=== PATIENT | male | born 1990 | race African-American/Black ===

== ENCOUNTER 2020-12-06 17:36 | Outpatient (REF) | payer MEDICAID, SELFPAY | END 2020-12-06 17:37 | disposition home or self-care (01) | LOC: HO.LAB 17:36 | PROVIDERS: Visit Provider Internal Medicine | DX: Z20.828 Contact with and (suspected) exposure to other viral communicable diseases (principal) | CPT/HCPCS: 36415; C9803; U0003 ==

== ENCOUNTER 2022-02-15 07:59 | Outpatient (REF) | payer MEDICAID, SELFPAY ==
--- NOTE | ~2022-02-15 | MR_ITS ---
EXAMINATION: MR SHOULDER WITHOUT CONTRAST, RIGHT CLINICAL INFORMATION: Right shoulder pain. COMPARISON: None TECHNIQUE: MRI of the shoulder without contrast was performed on a high-field scanner. FINDINGS: ROTATOR CUFF: Near complete tear of the supraspinatus tendon with some posteriormost fibers remaining intact. The tear measures approximately 1.7 cm in AP dimension with a 0.6 cm gap. Minimal undersurface partial tear at the infraspinatus tendon insertion with an associated small cyst at the myotendinous junction. Subscapularis insertional tendinopathy with ill-defined longitudinal interstitial/undersurface partial tear. No muscle atrophy or fatty infiltration. BICEPS: The biceps tendon is either markedly attenuated or completely torn and retracted. CORACOACROMIAL ARCH: The undersurface of the acromion is curved with an os acromiale with minimal degenerative change. The acromioclavicular joint is normal. LABRUM/CAPSULE: Evidence of an undersurface tear of the inferior labrum at the 6 o'clock position with an associated lobulated 1.1 cm paralabral cyst. GLENOHUMERAL JOINT/MARROW: Degenerative marrow changes and osteophytes along the greater tuberosity and superolateral humeral head. MR/MR shoulder RT wo con IMPRESSION: Complete or near-complete supraspinatus tendon tear as described. Evidence of a small undersurface partial tear of the distal infraspinatus tendon. Os acromiale with minimal degenerative change. Subscapularis tendinopathy with ill-defined longitudinal interstitial/undersurface partial tearing. Inferior labral tear with paralabral cyst. The biceps tendon is either markedly attenuated or torn and retracted.
--- NOTE | ~2022-02-15 | XR_ITS ---
EXAMINATION: PRE-MRI SCREENING ORBITS.. 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 COMPARISON: None TECHNIQUE: 3 views FINDINGS: 3 views of the orbits reveal no radiopaque metallic foreign body in the orbits. Visualized paranasal sinuses and mastoid air cells are well aerated. XR/XR pre mri screening IMPRESSION: No radiopaque metallic foreign body seen in the orbits.
== END 2022-02-15 08:00 | disposition home or self-care (01) ==
LOC: HO.MRI 07:59
PROVIDERS: PCP Internal Medicine; Visit Provider Internal Medicine
DX: S49.91XA Unspecified injury of right shoulder and upper arm, initial encounter (principal); Z87.828 Personal history of other (healed) physical injury and trauma
CPT/HCPCS: 73221

== ENCOUNTER 2022-03-15 11:33 | Outpatient (REF) | payer MEDICAID, SELFPAY ==
[2022-03-15 14:37] LABS: CT PCR NOT DETECTED (Not Detect.); NG PCR NOT DETECTED (Not Detect.)
== END 2022-03-15 11:34 | disposition home or self-care (01) ==
LOC: HO.LAB 11:33
PROVIDERS: PCP Internal Medicine; Visit Provider Internal Medicine
DX: Z11.3 Encounter for screening for infections with a predominantly sexual mode of transmission (principal); Z20.2 Contact with and (suspected) exposure to infections with a predominantly sexual mode of transmission
CPT/HCPCS: 87491; 87591

== ENCOUNTER 2023-03-08 20:48 | Emergency (ER) | payer MEDICAID, SELFPAY ==
[2023-03-08 21:04] VITALS: BP 128/80; PULSE 87; RESP 18; TEMP 36.4; O2SAT 97; BMI 31.0
--- NOTE | 2023-03-08 22:35 | ED_ITS ---
HPI - Animal Bite General Chief Complaint: Wound/Laceration Stated Complaint: animal bite Time Seen by Provider: 03/08/23 22:23 Source: patient Mode of arrival: ambulatory Limitations: no limitations History of Present Illness HPI narrative: Patient comes to the emergency room complaining of a dog bite. Patient states that he has a small dog who constantly tries to fight big dogs. This time, the small dog picked up a fight with a serbian Campos. Patient states that he was trying to pick up attendant his dog, the other person was trying to hold his [place] Campos back. However, during the fight, patient accidentally bitten by the Nigerian Campos. Patient states that he does not know the sales engagement manager of the Nigerian Campos and does not know anything about the other dog. Patient states he is up-to-date with his tetanus shot, received it 1 year ago. Patient complaining of a small bite to the right forearm Related Data Previous Rx's Medication Instructions Recorded doxycycline hyclate 100 mg capsule 100 mg PO BID 7 days #14 caps 03/08/23 metronidazole 500 mg tablet 500 mg PO TID 7 days #21 tabs 03/08/23 Allergies Allergy/AdvReac Type Severity Reaction Status Date / Time peanut [PEANUTS] Allergy Severe ANAPHYLAXIS Verified 03/08/23 21:07 Penicillins [PENICILLINS] Allergy Unknown HIVES Verified 03/08/23 21:07 Review of Systems Review of Systems: Constitutional : No Weight loss, No Fever, No Chills, No Night Sweats, No Fatigue, No Malaise ENT/Mouth : No Hearing loss, No Ear Pain, No Nasal Congestion, No Sinus Pain, No Hoarseness, No sore throat, No Rhinorrhea, No Swallowing Difficulty Eyes: No Eye Pain, No Swelling, No Redness, No Foreign Body, No Discharge, No Vision Changes Cardiovascular : No Chest Pain, No SOB, No Dyspnea on Exertion, No Orthopnea, No Edema, No Palpitations Respiratory : No Cough, No Sputum, No Wheezing, No Smoke Exposure, No Dyspnea Gastrointestinal : No Nausea, No Vomiting, No Diarrhea, No Constipation, No abdominal Pain, No Hematochezia, No Melena Genitourinary : no irregular bleeding, No Dysuria, No Urinary Frequency, No Hematuria, No Urinary Incontinence, No Urgency, No Flank Pain, No Urinary Flow Changes, No Hesitancy Musculoskeletal : No joint pain, No Myalgias, No Joint Swelling Skin : Dog bite to the right forearm Neuro : No Weakness, No Numbness, No Paresthesias, No Loss of Consciousness, No Dizziness, No Headache Psych : No Anxiety/Panic, No Depression, No SI/HI/AH/VH, No Social Issues, Heme/Lymph: No Bruising, No Bleeding,No Lymphadenopathy Endocrine : No Polyuria, No Polydipsia, No Temperature Intolerance PMFSH Social History Social History Advance Directives: No Advance Directives Information Provided: No Physical Exam ED Vital Signs: Vital Signs - 24 hr 03/08/23 21:04 Temperature 97.6 F Pulse Rate 87 Respiratory Rate 18 Blood Pressure 128/80 Pulse Oximetry 97 Oxygen Delivery Method Room Air BMI result Body Mass Index 31.0 Const Other: Appearance: Alert. Oriented X3. No acute distress. Eyes: Pupils equal, round and reactive to light. ENT: Pharynx normal. Neck: Normal inspection. Neck supple. No lymph nodes noted. No crepitus CVS: Normal heart rate and rhythm. Pulses normal. Normal S1 and S2 Respiratory: No respiratory distress. Breath sounds normal. No Wheezing. No rales Abdomen: Soft and nontender. No rigidity. No distention. Skin: Skin warm and dry. Three small puncture wounds, fairly superficial, bleeding controlled, Extremities: No lower extremity edema. No Lacerations. No Rash Neuro: Oriented X 3. No motor deficit. No sensory deficit. Moving all extremities. No slurred speech. CN 2 through 12 grossly intact Psych: calm, cooperative, normal affect Course Course Course Narrative: -patient's wounds were thoroughly irrigated -patient is up-to-date with tetanus shot -since we do not know anything about the dog, I discussed with the patient that I recommend the rabies vaccine series. Patient is agreeable. -patient is allergic to penicillin, patient was given p.o. metronidazole and doxycycline in the emergency room. Patient will continue treatment at home Discharge Plan Discharge Clinical Impression: Dog bite Patient Disposition: Home, Self-Care Instructions: Animal Bite (ED) Additional Instructions: Please follow-up with your primary care physician tomorrow. Also, please make sure you go to your appointment for your rabies immunizations. If you have any worsening or new symptoms, please return to the emergency room or call 911 Prescriptions: New metronidazole 500 mg tablet 500 mg PO TID 7 Days Qty: 21 0RF doxycycline hyclate 100 mg capsule 100 mg PO BID 7 Days Qty: 14 0RF
[2023-03-08] MEDS: Doxycycline Monohydrate 100 MG CAPSULE PO (23:21)
[2023-03-08] MEDS: metroNIDAZOLE 500 MG TABLET PO (23:21)
[2023-03-08] MEDS: Rabies Immune Globulin/PF 900 UNIT/3 ML VIAL 1905.08 UNIT IM (23:41)
== END 2023-03-09 00:04 | disposition home or self-care (01) ==
PROVIDERS: Emergency Provider Emergency Medicine; PCP Internal Medicine
DX: S51.851A Open bite of right forearm, initial encounter (principal); W54.0XXA Bitten by dog, initial encounter; Y93.9 Activity, unspecified; Y92.9 Unspecified place or not applicable; Y99.9 Unspecified external cause status; Z29.14 Encounter for prophylactic rabies immune globulin; Z20.3 Contact with and (suspected) exposure to rabies; Z23 Encounter for immunization
CPT/HCPCS: 90375; 90471; 90675; 96372; 99283; 99284

== ENCOUNTER 2023-03-11 08:45 | Outpatient (REF) | payer MEDICAID, SELFPAY | END 2023-03-11 08:46 | disposition home or self-care (01) | LOC: HO.MDS 08:45 | PROVIDERS: PCP Internal Medicine; Visit Provider Emergency Medicine | DX: Z20.3 Contact with and (suspected) exposure to rabies (principal); T14.8XXD Other injury of unspecified body region, subsequent encounter; W54.0XXD Bitten by dog, subsequent encounter | CPT/HCPCS: 90471; 90675 ==

== ENCOUNTER 2023-03-15 07:42 | Outpatient (REF) | payer MEDICAID, SELFPAY | END 2023-03-15 07:43 | disposition home or self-care (01) | LOC: HO.MDS 07:42 | PROVIDERS: Visit Provider Emergency Medicine | DX: S40.871D Other superficial bite of right upper arm, subsequent encounter (principal); W54.0XXD Bitten by dog, subsequent encounter; Y93.9 Activity, unspecified; Y92.9 Unspecified place or not applicable; Y99.9 Unspecified external cause status; Z20.3 Contact with and (suspected) exposure to rabies | CPT/HCPCS: 90471; 90675 ==

== ENCOUNTER 2023-03-22 07:35 | Outpatient (REF) | payer MEDICAID, SELFPAY | END 2023-03-22 07:36 | disposition home or self-care (01) | LOC: HO.MDS 07:35 | PROVIDERS: Visit Provider Emergency Medicine | DX: T14.8XXA Other injury of unspecified body region, initial encounter (principal); W54.0XXA Bitten by dog, initial encounter; Y92.9 Unspecified place or not applicable; Y99.9 Unspecified external cause status; Z20.3 Contact with and (suspected) exposure to rabies | CPT/HCPCS: 90471; 90675 ==

== ENCOUNTER 2023-11-10 10:16 | Emergency (ER) | payer MEDICAID, SELFPAY ==
--- NOTE | ~2023-11-10 | CT_ITS ---
EXAMINATION: CT ABDOMEN AND PELVIS WITH CONTRAST CLINICAL INFORMATION: Abdominal pain. COMPARISON: CT scan of the abdomen and pelvis dated 09/14/2017. TECHNIQUE: Multidetector CT volumetric acquisition of the abdomen and pelvis was performed after the administration of 85 mL of intravenous Omnipaque 350. The data set was reformatted in the sagittal and coronal planes and reviewed on an independent workstation. This CT examination was performed using dose optimization techniques as appropriate, variously including the following: *Automated exposure control *Adjustment of mA and/or kV according to patient size (this includes techniques or standardized protocols for targeted exams where dose is matched to indication/reason for exam; i.e. extremities or head) *Use of iterative reconstruction technique DLP: 510.76 mGy-cm. FINDINGS: LOWER CHEST: Included lung bases unremarkable. Focal fluid distention of the included portions of the distal esophagus noted, perhaps related to gastroesophageal reflux. LIVER, GALLBLADDER, BILIARY TREE: Liver normal size and attenuation. The hepatic dome is not fully included in the [id number] of the exam. No focal cystic or solid mass or intra-or extrahepatic ductal dilatation. Portal veins patent. A few calcified gallstones are seen within the gallbladder neck region. The gallbladder is otherwise unremarkable with no evidence of wall thickening or pericholecystic fluid. PANCREAS: Normal. No ductal dilatation, mass, or surrounding stranding. SPLEEN: Normal size and appearance. Splenic vein patent. ADRENAL GLANDS AND KIDNEYS: Right adrenal gland normal. Fullness of the left adrenal gland is seen with a subtle 2.5 x 1.3 nodular enlargement of the inferior lateral limb, unchanged dating back to 09/14/2017 and consistent with a benign finding, such as nodular adrenal hypertrophy versus a benign adrenal adenoma. Lobulated mid right renal thin-walled nonenhancing cyst is again seen, unchanged from prior exam. No specific imaging follow-up for benign cysts is recommended. Kidneys bilaterally symmetric in size and function. No suspicious focal renal mass, hydronephrosis, nephrolithiasis or perinephric stranding. URETERS AND BLADDER: Ureters decompressed and within normal limits. Bladder partially distended and within normal limits. PELVIC ORGANS: Unremarkable. GASTROINTESTINAL TRACT: There is mild fluid distention of small bowel loops in the right side of the abdomen extending into the pelvis with associated minimal hyperemia of the mesentery and a few scattered air-fluid levels. Findings raise the suspicion of subtle enteritis. The terminal ileum is decompressed and unremarkable. A few scattered colonic diverticula are seen with no evidence of acute diverticulitis. There is prominent submucosal fat deposition noted in the transverse colon, perhaps sequelae of previous colitis versus related to increased body habitus. Appendix is not seen, but no focal inflammatory process is seen at the cecal base to suspect acute appendicitis.. LYMPHOVASCULAR STRUCTURES: Abdominal aorta normal in caliber. No periaortic collections. No abdominal or pelvic adenopathy or free fluid collection. BONES: Small sclerotic density is seen in the left iliac bone (series 4, image 463), new from 09/14/2017, of uncertain etiology or significance. Finding may represent a small cyst with peripheral sclerotic rim. CT/CT abdomen pelvis w IV con IMPRESSION: * Mild fluid distention of small bowel loops in the right side of the abdomen and pelvis, nonspecific, but raising the suspicion of an enteritis. Close clinical correlation is requested. * Cholelithiasis with no evidence of acute cholecystitis or biliary obstruction. * Stable nodular enlargement of the left adrenal gland, consistent with a benign finding, such as nodular adrenal hypertrophy versus a benign adrenal adenoma. * Benign-appearing right renal cyst, for which no imaging follow-up is recommended. * Small sclerotic density in the left iliac bone, new from 09/14/2017, of uncertain etiology or significance. Finding may represent a small cyst with peripheral sclerotic rim. If the patient is symptomatic in this region, follow-up evaluation with nonemergent bone scan could be performed.
[2023-11-10 10:22] VITALS: PULSE 65; RESP 16; TEMP 36.4; O2SAT 98; BMI 33.5
--- NOTE | 2023-11-10 10:29 | ED_ITS ---
HPI - General Adult General Chief complaint: Abdominal Pain Stated complaint: abd pain Time Seen by Provider: 11/10/23 10:29 Source: patient Mode of arrival: wheelchair Limitations: no limitations History of Present Illness HPI narrative: Patient is a 33 year old assigned male at with no reported medical history presenting to the emergency department today with abdominal pain. Patient states that he was lying down when he had sudden abdominal pain. Patient denies any dizziness, lightheadedness, nausea, vomiting, fever, chills, blurry vision, double vision, loss of vision, chest pain, difficulty breathing, shortness of breath, back pain, night sweats, pain with urination, increased urinary frequency, increased urinary urgency, blood in his urine or stool, syncope or a near syncopal episode, recent trauma or falls, bowel incontinence, bladder incontinence, bowel retention, bladder retention, or any other complaints at this time. Onset (ago): minute(s) Location: abdomen Radiation: non-radiation Severity: moderate Severity scale (1-10): 5 Relieving factors: none Exacerbating factors: none Associated symptoms: denies other symptoms Treatments prior to arrival: none Related Data Previous Rx's Medication Instructions Recorded doxycycline hyclate 100 mg capsule 100 mg PO BID 7 days #14 caps 03/08/23 metronidazole 500 mg tablet 500 mg PO TID 7 days #21 tabs 03/08/23 ondansetron 4 mg disintegrating 4 mg PO Q8H 3 days #9 tabs 11/10/23 tablet Allergies Allergy/AdvReac Type Severity Reaction Status Date / Time peanut [PEANUTS] Allergy Severe ANAPHYLAXIS Verified 11/10/23 10:25 Penicillins [PENICILLINS] Allergy Unknown HIVES Verified 11/10/23 10:25 Review of Systems 2 Constitutional: Constitutional: Reports no additional constitutional complaints, Denies chills, Denies fever(s) and Denies night sweats Eyes: Eyes: Reports no additional eye complaints, Denies blurry vision, Denies change in vision, Denies diplopia, Denies eye discharge, Denies loss of vision and Denies eye pain ENT: Denies dizziness Cardiovascular: Cardiovascular: Reports no additional cardiovascular complaints, Denies chest pain, Denies lightheadedness, Denies Loss of Consciousness and Denies dyspnea Respiratory: Respiratory: Reports no additional respiratory complaints and Denies dyspnea Gastrointestinal: Gastrointestinal: Reports no additional gastrointestinal complaints, Reports abdominal pain, Denies melena, Denies hematochezia, Denies change in bowel habits and Denies change in stool character Genitourinary: Genitourinary: Reports no additional male genitourinary complaints, Denies hematuria, Denies oliguria, Denies difficulty urinating, Denies dysuria, Denies urinary frequency, Denies urinary hesitancy, Denies urinary incontinence and Denies urinary urgency Musculoskeletal: Musculoskeletal: Reports no additional musculoskeletal complaints, Denies numbness and Denies tingling Neurologic: Denies dizziness, Denies loss of vision, Denies numbness and Denies tingling Psychiatric: Psychiatric: Reports no additional psychiatric complaints Endocrine: Endocrine: Reports no additional endocrine complaints Hematologic/Lymphatic: Hematologic/Lymphatic: Reports no additional hematologic/lymphatic complaints Allergic/Immunologic: Allergic/Immunologic: Reports no additional allergic/immunologic complaints [facility] Past Medical History Attestation statement: The following information was validated with the patient. Source: old records reviewed and nursing notes reviewed Social History Social History Advance Directives: No Advance Directives Information Provided: No Physical Exam ED Vital Signs: Vital Signs - 24 hr 11/10/23 10:22 Temperature 97.6 F Pulse Rate 65 Respiratory Rate 16 Pulse Oximetry 98 Oxygen Delivery Method Room Air BMI result Body Mass Index 33.5 Const General: cooperative, no acute distress, alert and awake Nutritional Appearance: well nourished Orientation/consciousness: patient oriented x3 Limitations: no limitations HENMT Head: Yes normal to inspection and Yes atraumatic Ears: hearing grossly normal bilaterally and external ears normal General nose exam: Normal external nose present, no nasal discharge noted and no epistaxis Face and sinus: Yes normal facial exam, No abrasion and No laceration Mouth: Normal oral and palatal mucosa present, no drooling and no muffled voice Eyes General: appearance normal, both eyes and all related structures Periorbital: periorbital findings normal Eyelids: Yes eyelids normal Conjunctivae: conjunctivae normal Pupils: Equal, round and reactive pupils present EOM: EOMs intact bilaterally Neck Neck: Yes normal visual inspection, Yes full ROM and Yes no lymphadenopathy Chest Chest palpation & inspection: normal inspection of the chest Resp Effort & Inspection: normal respiratory effort and able to speak in complete sentences Auscultation: clear to auscultation bilaterally Cardio Rate: regular rate Rhythm: regular rhythm GI Inspection: Yes normal to inspection Palpation (GI): Soft to palpation, not firm, Tenderness to palpation present (GI), no guarding and not rigid Neuro General: patient oriented x3 and moves all extremities Cranial nerves: Yes Equal, round and reactive pupils present Cognition (Neuro): normal cognition Motor exam (neuro): 5/5 motor strength present throughout Sensory Exam: Normal double simultaneous stimulation for sensation Coordination: [id number] test normal Extrem General: Yes normal to inspection, Yes full ROM and Yes capillary refill normal Psych Appearance: grossly normal Mental Status: mental status grossly normal Affect: normal affect Attitude: cooperative Thought process: Normal thought process present Thought content: Normal thought content present Insight: Good insight present (Psych) Medications Administered Discontinued Medications Generic Name Dose Route Start Last Admin Trade Name Freq PRN Reason Stop Dose Admin Sodium Chloride 1,000 mls @ 999 mls/hr 11/10/23 11:15 11/10/23 12:11 Ns IV 11/10/23 12:15 999 mls/hr .Q1H1M SHERYL Administration Iohexol 85 ml 11/10/23 11:10 11/10/23 11:10 Iohexol 350 Mg/Ml 100 Ml Infus..Btl IV 11/10/23 11:11 85 ml ONCE ONE Administration Morphine Sulfate 4 mg 11/10/23 10:32 11/10/23 10:40 Morphine Sulfate 4 Mg/Ml Cartridge IVPUSH 11/10/23 10:33 4 mg ONCE ONE Administration Protocol Morphine Sulfate 2 mg 11/10/23 12:53 11/10/23 12:58 Morphine Sulfate 2 Mg/Ml Cartridge IVPUSH 11/10/23 12:54 2 mg ONCE ONE Administration Protocol Ondansetron HCl 4 mg 11/10/23 10:32 11/10/23 10:41 Ondansetron Hcl 4 Mg/2 Ml Vial IVPUSH 11/10/23 10:33 4 mg ONCE ONE Administration Medical Decision Making Medical Decision Making MDM Narrative: Patient is a 33 year old assigned male at with no reported medical history presenting to the emergency department today with abdominal pain. Patient's physical exam showed abdominal pain with palpation. Patient's blood work showed an elevated lactic acid, which I attribute to a stress reaction, and the rest of his blood work was unremarkable. Patient's abdomen/pelvis CT showed enteritis as well as other incidental findings such as a right renal cyst, gallstones, and a possible bony lesion on his left hip for which additional imaging was recommended by radiology on an outpatient basis. I explained my physical exam findings as well as all test results to the patient. I answered all questions asked by the patient. Patient received IV pain medication and fluids which he stated helped his symptoms significantly. I stressed the importance of the patient taking his medication as prescribed. I stressed the importance of the patient following up with his primary care provider, a GI specialist, and a general surgeon. I stressed the importance of the patient returning to the emergency department immediately if his symptoms were to worsen or if he were to develop any dizziness, shortness of breath, difficulty breathing, chest pain, blurry vision, loss of vision, nausea, vomiting, abdominal pain, fever, chills, back pain, or any other complaints. Patient verbalized agreement and understanding with this treatment plan and discharge. Differential Diagnosis Differential Diagnoses: The differential diagnosis associated with the presentation includes Enteritis Gastroenteritis Abdominal pain Diverticulitis Appendcitis Cholecystitic Cholelithiasis Admission/Observation Consideration of admission/observation: Escalation of care including admission/observation considered Patient would have been admitted to the hospital had his work up had any findings where hospital admission was appropriate and his clinical presentation warranted hospital admission. Lab Data [facility] Lab Attestation statement: I reviewed the patient's lab results. My interpretation of these results are in the [facility] Rationale portion of this note. 11/10/23 10:39 11/10/23 10:39 Labs: Lab Results 11/10/23 11/10/23 Range/Units 10:39 11:26 WBC 9.1 (4.8-10.8) X10*3/uL RBC 4.98 (4.60-5.80) X10*6/uL Hgb 15.2 (14.0-18.0) g/dl Hct 44.6 (42.0-52.0) % MCV 89.6 (80.0-98.0) fL MCH 30.5 (27.0-33.0) pg MCHC 34.1 (31.0-36.0) g/dl RDW 11.0 (11.0-16.0) % Plt Count 292 (160-400) X10*3/uL MPV 10.6 (9.4-12.4) fL Immature Gran % (Auto) Cancelled Neut % (Auto) Cancelled Lymph % (Auto) Cancelled [place] % (Auto) Cancelled Eos % (Auto) Cancelled Baso % (Auto) Cancelled Lymph # (Auto) Cancelled [place] # (Auto) Cancelled Eos # (Auto) Cancelled Baso # (Auto) Cancelled Abs Immat Gran (auto) Cancelled Absolute Neuts (auto) Cancelled Absolute Nucleated RBC 0.000 (0.0-0.012) X10*3/uL Nucleated RBC % (auto) 0.0 (0.0-0.2) /100WBC Neutrophils % (Manual) 22 L (45-73) % Band Neutrophils % 1 L (3-5) % Lymphocytes % (Manual) 39 (20-40) % Atypical Lymphs % (Man) 26 H (0-6) % Monocytes % (Manual) 11 (2-11) % Eosinophils % (Manual) 1 (0-4) % Abs Neuts (Manual) 2.1 (2.0-8.3) X10*3/uL Lymphocytes # (Manual) 3.5 (1.2-4.9) X10*3/uL Atyp Lymphs # (Manual) 2.4 x10*3/uL Monocytes # (Manual) 1.0 (0.1-1.2) X10*3/uL Eosinophils # (Manual) 0.1 (0.0-0.4) X10*3/uL Platelet Estimate NORMAL (NORMAL) Large Platelets PRESENT Plt Morphology Comment NORMAL RBC Morphology NORMAL Sodium 141 (135-145) mmol/L Potassium 3.4 (3.3-5.1) mmol/L Chloride 105 (96-108) mmol/L Carbon Dioxide 24 (22-29) mmol/L Anion Gap 15 (12-20) BUN 18 H (9-16) mg/dL Creatinine 0.95 (0.5-1.4) mg/dL Estim Creat Clear Calc 124.4 Estimated GFR > 60 Random Glucose 119 H (60-115) mg/dL Lactic Acid 2.3 H* (0.5-2.0) mmol/L Calcium 9.7 (8.4-10.2) mg/dL Total Bilirubin 1.4 H (0.0-1.0) mg/dL Direct Bilirubin 0.4 (0.0-0.5) mg/dL AST 22 (5-37) U/L ALT 33 (0-40) U/L Alkaline Phosphatase 60 (39-117) U/L Total Protein 8.0 (6.5-8.0) g/dL Albumin 4.6 (3.5-5.0) g/dL Lipase 17 (8-78) U/L Ethyl Alcohol < 10 mg/dL Influenza Type A (PCR) NEGATIVE (Negative) Influenza Type B (PCR) NEGATIVE (Negative) RSV RNA Qual (PCR) NEGATIVE (Negative) SARS-CoV-2 RNA (RT-PCR) NEGATIVE (Negative) Independent Interpretation I performed an independent interpretation of an: CT Scan Interpretation: My interpretation is in agreement with the radiologist's impression of this imaging study. - EXAMINATION: CT ABDOMEN AND PELVIS WITH CONTRAST CLINICAL INFORMATION: Abdominal pain. COMPARISON: CT scan of the abdomen and pelvis dated 09/14/2017. TECHNIQUE: Multidetector CT volumetric acquisition of the abdomen and pelvis was performed after the administration of 85 mL of intravenous Omnipaque 350. The data set was reformatted in the sagittal and coronal planes and reviewed on an independent workstation. This CT examination was performed using dose optimization techniques as appropriate, variously including the following: *Automated exposure control *Adjustment of mA and/or kV according to patient size (this includes techniques or standardized protocols for targeted exams where dose is matched to indication/reason for exam; i.e. extremities or head) *Use of iterative reconstruction technique DLP: 510.76 mGy-cm. FINDINGS: LOWER CHEST: Included lung bases unremarkable. Focal fluid distention of the included portions of the distal esophagus noted, perhaps related to gastroesophageal reflux. LIVER, GALLBLADDER, BILIARY TREE: Liver normal size and attenuation. The hepatic dome is not fully included in the [id number] of the exam. No focal cystic or solid mass or intra-or extrahepatic ductal dilatation. Portal veins patent. A few calcified gallstones are seen within the gallbladder neck region. The gallbladder is otherwise unremarkable with no evidence of wall thickening or pericholecystic fluid. PANCREAS: Normal. No ductal dilatation, mass, or surrounding stranding. SPLEEN: Normal size and appearance. Splenic vein patent. ADRENAL GLANDS AND KIDNEYS: Right adrenal gland normal. Fullness of the left adrenal gland is seen with a subtle 2.5 x 1.3 nodular enlargement of the inferior lateral limb, unchanged dating back to 09/14/2017 and consistent with a benign finding, such as nodular adrenal hypertrophy versus a benign adrenal adenoma. Lobulated mid right renal thin-walled nonenhancing cyst is again seen, unchanged from prior exam. No specific imaging follow-up for benign cysts is recommended. Kidneys bilaterally symmetric in size and function. No suspicious focal renal mass, hydronephrosis, nephrolithiasis or perinephric stranding. URETERS AND BLADDER: Ureters decompressed and within normal limits. Bladder partially distended and within normal limits. PELVIC ORGANS: Unremarkable. GASTROINTESTINAL TRACT: There is mild fluid distention of small bowel loops in the right side of the abdomen extending into the pelvis with associated minimal hyperemia of the mesentery and a few scattered air-fluid levels. Findings raise the suspicion of subtle enteritis. The terminal ileum is decompressed and unremarkable. A few scattered colonic diverticula are seen with no evidence of acute diverticulitis. There is prominent submucosal fat deposition noted in the transverse colon, perhaps sequelae of previous colitis versus related to increased body habitus. Appendix is not seen, but no focal inflammatory process is seen at the cecal base to suspect acute appendicitis.. LYMPHOVASCULAR STRUCTURES: Abdominal aorta normal in caliber. No periaortic collections. No abdominal or pelvic adenopathy or free fluid collection. BONES: Small sclerotic density is seen in the left iliac bone (series 4, image 463), new from 09/14/2017, of uncertain etiology or significance. Finding may represent a small cyst with peripheral sclerotic rim. CT/CT abdomen pelvis w IV con IMPRESSION: * Mild fluid distention of small bowel loops in the right side of the abdomen and pelvis, nonspecific, but raising the suspicion of an enteritis. Close clinical correlation is requested. * Cholelithiasis with no evidence of acute cholecystitis or biliary obstruction. * Stable nodular enlargement of the left adrenal gland, consistent with a benign finding, such as nodular adrenal hypertrophy versus a benign adrenal adenoma. * Benign-appearing right renal cyst, for which no imaging follow-up is recommended. * Small sclerotic density in the left iliac bone, new from 09/14/2017, of uncertain etiology or significance. Finding may represent a small cyst with peripheral sclerotic rim. If the patient is symptomatic in this region, follow-up evaluation with nonemergent bone scan could be performed. Dictated By: Milagro Varner MD Signed By: Electronically signed by Milagro Varner MD 11/10/23 6178 Radiology Impression Discussion of test interpretation with radiology: I have reviewed the radiologist's reading. Critical Care Time Critical Care Time Critical Care Time: Yes Total Critical Care Time: 45 Attestation: I spent 45 minutes of Critical Care Time with this patient. This does not include time spent on separately reported billable procedures. Discharge Plan Discharge Clinical Impression: Enteritis Patient Disposition: Home, Self-Care Instructions: Enteritis (ED) Additional Instructions: Follow up with your primary care provider, a GI specialist (for your increase in bowel movements), and general surgeon (for your ongoing gallstones / gallbladder pain). Return to the emergency department immediately if your symptoms worsen or if you develop any dizziness, shortness of breath, difficulty breathing, chest pain, blurry vision, loss of vision, nausea, vomiting, abdominal pain, fever, chills, back pain, or any other complaints. Your CT scan of the abdomen and pelvis showed a few incidental findings including: Gallstones (for which you should follow up with a general surgeon) Right renal cyst (for which you do not need any additional imaging but should inform your PCP about) Small sclerotic density in the left iliac (hip) bone (given that you are having pain there occasionally, you should follow up with your PCP about this). Prescriptions: New ondansetron 4 mg tablet,disintegrating 4 mg PO Q8H 3 Days Qty: 9 0RF No Action metronidazole 500 mg tablet 500 mg PO TID 7 Days Qty: 21 0RF doxycycline hyclate 100 mg capsule 100 mg PO BID 7 Days Qty: 14 0RF [place] [facility] [facility] [place] [facility] [place] Group] (Call to establish and follow up with a GI specialist (to discuss your increased amount of bowel movements).) [facility] [place] [facility] [place] Group] (Call to establish and follow up with a general surgeon (to discuss your gallbladder).) Osorio Marcelino MD [Primary Care Provider] - Print Language: Estonian
[2023-11-10] MEDS: Morphine Sulfate 4 MG/ML CARTRIDGE IVPUSH (10:40)
[2023-11-10] MEDS: ondansetron HCL 4 MG/2 ML VIAL IVPUSH (10:41)
[2023-11-10 10:54] LABS: Hematocrit 44.6 % (42.0-52.0); Hemoglobin 15.2 g/dl (14.0-18.0); Mean Corpuscular HGB Conc 34.1 g/dl (31.0-36.0); Mean Corpuscular Hemoglobin 30.5 pg (27.0-33.0); Mean Corpuscular Volume 89.6 fL (80.0-98.0); Mean Platelet Volume 10.6 fL (9.4-12.4); Platelet Count 292 X10*3/uL (160-400); Red Blood Count 4.98 X10*6/uL (4.60-5.80); White Blood Count 9.1 X10*3/uL (4.8-10.8)
[2023-11-10 11:08] LABS: Alanine Aminotransferase 33 U/L (0-40); Albumin Level 4.6 g/dL (3.5-5.0); Alkaline Phosphatase 60 U/L (39-117); Anion Gap 15 (12-20); Aspartate Amino Transferase 22 U/L (5-37); Bilirubin Direct 0.4 mg/dL (0.0-0.5); Bilirubin Total 1.4 mg/dL (0.0-1.0); Blood Urea Nitrogen 18 mg/dL (9-16); Calcium 9.7 mg/dL (8.4-10.2); Carbon Dioxide 24 mmol/L (22-29); Chloride 105 mmol/L (96-108); Creatinine Clr Calc Pharmacy 124.4; Estimated Glomerular Filt Rate > 60; Glucose Random 119 mg/dL (60-115); Lactic Acid 2.3 mmol/L (0.5-2.0); Lipase 17 U/L (8-78); Potassium 3.4 mmol/L (3.3-5.1); Sodium 141 mmol/L (135-145)
[2023-11-10] MEDS: iohexoL 350 MG/ML 100 ML INFUS..BTL 85 ML IV (11:10)
[2023-11-10 11:38] LABS: Ethanol < 10 mg/dL
[2023-11-10 11:46] LABS: Atypical Lymph Absolute Manual 2.4 x10*3/uL; Atypical Lymphs Percent Manual 26 % (0-6); Band Neutrophils Percent 1 % (3-5); Eosinophils Absolute Manual 0.1 X10*3/uL (0.0-0.4); Eosinophils Percent Manual 1 % (0-4); Large Platelet PRESENT; Lymphocytes Absolute Manual 3.5 X10*3/uL (1.2-4.9); Lymphocytes Percent Manual 39 % (20-40); Monocytes Percent Manual 11 % (2-11); Neutrophils Absolute Manual 2.1 X10*3/uL (2.0-8.3); Neutrophils Percent Manual 22 % (45-73); Platelet Estimate NORMAL (NORMAL); Platelet Morphology Comment NORMAL; RBC Morphology NORMAL
[2023-11-10 12:08] LABS: Influenza A PCR NEGATIVE (Negative); Influenza B PCR NEGATIVE (Negative); Resp Syncy Virus RNA Qual PCR NEGATIVE (Negative); SARS COV2 PCR INHOUSE NEGATIVE (Negative)
[2023-11-10] MEDS: 0.9 % Sodium Chloride 1,000 ML 999 ML IV (12:11)
[2023-11-10 12:51] LABS: Reflex Lactate? Lactic Acid Added
[2023-11-10] MEDS: Morphine Sulfate 2 MG/ML CARTRIDGE IVPUSH (12:58)
== END 2023-11-10 14:07 | disposition home or self-care (01) ==
PROVIDERS: Physician Assistant Medical; Emergency Provider Emergency Medicine Emergency Medical Services; PCP Internal Medicine
DX: K52.9 Noninfective gastroenteritis and colitis, unspecified (principal); Z20.822 Contact with and (suspected) exposure to COVID-19; Z20.828 Contact with and (suspected) exposure to other viral communicable diseases; Z79.899 Other long term (current) drug therapy
CPT/HCPCS: 0241U; 36415; 74177; 80053; 80307; 82248; 83605; 83690; 85007; 85025; 85027; 87040; 96374; 96375; 96376; 99284; J2270; J2405; Q9967

== ENCOUNTER 2023-11-11 17:01 | Outpatient (REF) | payer MEDICAID, SELFPAY ==
--- NOTE | ~2023-11-11 | XR_ITS ---
EXAMINATION: XR ABDOMEN COMPLETE CLINICAL INDICATION: Reason for Exam SOB, ABD PAIN COMPARISON: CT abdomen pelvis 11/10/2023 TECHNIQUE: AP view of the abdomen. FINDINGS: Lines or devices: None. Nonobstructive bowel gas pattern. No significant stool burden. No extraluminal subdiaphragmatic air. Calcified phleboliths in the pelvis. Again seen is a sclerotic lesion in the left iliac bone, better characterized on recent prior CT. XR/XR KUB IMPRESSION: 1. Nonobstructive bowel gas pattern. 2. Again seen is a sclerotic lesion in the left iliac bone, better characterized on recent prior CT.
[2023-11-11 17:19] LABS: MANUAL DIFF FLAG NO
[2023-11-11 19:34] LABS: Basophils Percent Auto 0.2 % (0-2); Eosinophils Absolute Auto 0.1 X10*3/uL (0.0-0.4); Eosinophils Percent Auto 1.2 % (0-4); Hematocrit 43.9 % (42.0-52.0); Hemoglobin 14.6 g/dl (14.0-18.0); Imm Gran Abs Auto 0.01 X10*3/uL (0.00-0.03); Imm Gran Pct Auto 0.2 % (0.0-0.4); Lymphocytes Absolute Auto 2.1 X10*3/uL (1.2-4.9); Lymphocytes Percent Auto 35.9 % (20-40); Mean Corpuscular HGB Conc 33.3 g/dl (31.0-36.0); Mean Corpuscular Hemoglobin 30.7 pg (27.0-33.0); Mean Corpuscular Volume 92.4 fL (80.0-98.0); Mean Platelet Volume 11.4 fL (9.4-12.4); Monocytes Absolute Auto 0.7 X10*3/uL (0.1-1.2); Monocytes Percent Auto 11.3 % (2-11); Neutrophils Absolute Auto 3.1 x10*3/uL (2.0-8.3); Neutrophils Percent Auto 51.2 % (45-73); Platelet Count 251 X10*3/uL (160-400); Red Blood Count 4.75 X10*6/uL (4.60-5.80); Red Cell Distribution Width 10.9 % (11.0-16.0); White Blood Count 5.9 X10*3/uL (4.8-10.8)
[2023-11-11 19:49] LABS: C Reactive Protein 0.12 mg/dL (< or = 0.50)
[2023-11-11 20:11] LABS: Erythrocyte Sedimentation Rate 3 MM/HR (0-15)
== END 2023-11-11 17:02 | disposition home or self-care (01) ==
LOC: HO.XRAY 17:01
PROVIDERS: PCP Internal Medicine; Visit Provider Internal Medicine
DX: R10.2 Pelvic and perineal pain (principal); K80.20 Calculus of gallbladder without cholecystitis without obstruction
CPT/HCPCS: 36415; 74018; 82550; 85025; 85652; 86140

== ENCOUNTER 2023-11-12 14:01 | Outpatient (AMB) | payer MEDICAID, SELFPAY ==
--- NOTE | 2023-11-12 14:07 | A.OFFVIS_ITS ---
Intake Vital Signs 11/12/23 14:11 Height 5 ft 8 in Weight 101.605 kg BMI 34.1 BP 139/70 Blood Pressure Location Rt brachial Position Sitting Pulse 94 Intake Visit Reasons: gallstones Intake Note: This patient presents for an assessment for gallstones. 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 He was recently seen emergency department for this and CT scan demonstrated significant cholelithiasis well as stone in the cystic duct neck. Patient has never been jaundiced before. He otherwise has regular bowel habits. He does think he has fatty food intolerance. Chart was reviewed patient evaluated [facility] Surgical History No pertinent past surgical history Social History (Updated 11/12/23 @ 14:23 by CIPRIANO Melendrez) Alcohol intake: current Alcohol intake frequency: holidays/special occasions only Patient Tobacco Use Status: Never used Tobacco Physical Exam Vital Signs: Last Vital Signs Pulse 94 11/12/23 14:11 BP 139/70 11/12/23 14:11 BMI result Body Mass Index 34.1 Eyes Other: Anicteric Chest Other: Chest breath sounds bilaterally, HS 1 in 2 GI Other: Abdomen soft, moderately corpulent, benign Assessment & Plan Assessment & Plan (1) Recurrent biliary colic: Code(s): K80.50 - Calculus of bile duct without cholangitis or cholecystitis without obstruction Plan Risks, benefits, alternatives of laparoscopic possible open cholecystectomy reviewed the patient and included but not limited to bleeding, infection, recurrence of symptoms, numbness, pain, scarring, bowel or bile duct injury or leak and the patient wishes to proceed. All questions were answered. Arrangements were made for this. Coding Level of Care Code New Pt Level 5 (46998) Diagnoses Recurrent biliary colic K80.50
[2023-11-12 14:11] VITALS: BP 139/70; PULSE 94; BMI 34.1
== END 2023-11-12 14:24 | disposition home or self-care (01) ==
PROVIDERS: PCP Internal Medicine; Visit Provider Surgery
DX: K80.50 Calculus of bile duct without cholangitis or cholecystitis without obstruction (principal)
CPT/HCPCS: 99204

== ENCOUNTER → 2023-11-12 14:01 | Outpatient (BNVA) | payer MEDICAID, SELFPAY | PROVIDERS: PCP Internal Medicine; Visit Provider Surgery | DX: K80.50 Calculus of bile duct without cholangitis or cholecystitis without obstruction (principal) | CPT/HCPCS: 99202 ==

== ENCOUNTER 2023-11-18 16:33 | Outpatient (REF) | payer MEDICAID, SELFPAY | END 2023-11-18 16:34 | disposition home or self-care (01) | LOC: HO.XRAY 16:33 | PROVIDERS: PCP Internal Medicine; Visit Provider Internal Medicine | DX: M54.50 Low back pain, unspecified (principal) | CPT/HCPCS: 72100 ==

== ENCOUNTER 2023-11-20 17:39 | Emergency (ER) | payer MEDICAID, SELFPAY ==
[2023-11-20 18:04] VITALS: BP 125/78; PULSE 95; RESP 18; TEMP 36.6; O2SAT 97; BMI 33.5
--- NOTE | 2023-11-20 18:11 | ED.GENADULT ---
HPI - General Adult General Chief complaint: Extremity Injury, Lower Stated complaint: sharp/ numb pain in R leg- going down leg Time Seen by Provider: 11/20/23 18:25 Source: patient Mode of arrival: ambulatory Limitations: no limitations History of Present Illness HPI narrative: Patient is a 33 year old assigned male at with a history of biliary colic presenting to the emergency department today with low back pain. Patient states that over the last few days he has been having low back pain that shoots down his leg when he stands. Patient states that he is on a muscle relaxer but that does not seem to be helping. Patient states that he is having surgery tomorrow to have his gallbladder removed. Patient denies any dizziness, lightheadedness, abdominal pain, nausea, vomiting, fever, chills, blurry vision, double vision, loss of vision, chest pain, difficulty breathing, shortness of breath, night sweats, pain with urination, increased urinary frequency, increased urinary urgency, blood in his urine or stool, syncope or a near syncopal episode, recent trauma or falls, bowel incontinence, bladder incontinence, bowel retention, bladder retention, or any other complaints at this time. Onset (ago): day(s) Location: back Radiation: extremity and distal Severity: mild Severity scale (1-10): 4 Quality: aching and dull Pain Consistency: intermittent Relieving factors: none Exacerbating factors: none Associated symptoms: denies other symptoms Treatments prior to arrival: other (muscle relaxer) Related Data Home Medications Medication Instructions Recorded Confirmed dextroamphetamine-amphetamine ER 1 cap PO BID 11/12/23 20 mg 24hr capsule,extend release (Adderall XR) Previous Rx's Medication Instructions Recorded hydrocodone 5 mg-acetaminophen 325 1 tab PO Q4-6H PRN pain #30 tabs 11/21/23 mg tablet Allergies Allergy/AdvReac Type Severity Reaction Status Date / Time peanut [PEANUTS] Allergy Severe ANAPHYLAXIS Verified 11/12/23 14:22 Penicillins [PENICILLINS] Allergy Unknown HIVES Verified 11/12/23 14:22 Sulfa (Sulfonamide Allergy swelling Verified 11/12/23 14:22 Antibiotics) cefaclor [From Ceclor] AdvReac GI problems Verified 11/12/23 14:22 naphon Allergy Severe eye Uncoded 11/12/23 14:22 medication Review of Systems Constitutional: Constitutional: Reports no additional constitutional complaints, Denies chills, Denies fever(s) and Denies night sweats Eyes: Eyes: Reports no additional eye complaints, Denies blurry vision, Denies change in vision, Denies diplopia, Denies eye discharge, Denies loss of vision and Denies eye pain ENT: Denies dizziness Cardiovascular: Cardiovascular: Reports no additional cardiovascular complaints, Denies chest pain, Denies lightheadedness, Denies Loss of Consciousness and Denies dyspnea Respiratory: Respiratory: Reports no additional respiratory complaints and Denies dyspnea Gastrointestinal: Gastrointestinal: Reports no additional gastrointestinal complaints, Denies abdominal pain, Denies melena, Denies hematochezia, Denies change in bowel habits and Denies change in stool character Genitourinary: Genitourinary: Reports no additional male genitourinary complaints, Denies hematuria, Denies oliguria, Denies difficulty urinating, Denies dysuria, Denies urinary frequency, Denies urinary hesitancy, Denies urinary incontinence and Denies urinary urgency Musculoskeletal: Musculoskeletal: Reports no additional musculoskeletal complaints, Reports back pain, Denies numbness and Denies tingling Neurologic: Denies dizziness, Denies loss of vision, Denies numbness and Denies tingling Psychiatric: Psychiatric: Reports no additional psychiatric complaints Endocrine: Endocrine: Reports no additional endocrine complaints Hematologic/Lymphatic: Hematologic/Lymphatic: Reports no additional hematologic/lymphatic complaints Allergic/Immunologic: Allergic/Immunologic: Reports no additional allergic/immunologic complaints [facility] Past Medical History Attestation statement: The following information was validated with the patient. Source: old records reviewed and nursing notes reviewed Medical History Asthma Surgical History Hx of rotator cuff surgery No pertinent past surgical history Social History Social History Alcohol intake: current Alcohol intake frequency: holidays/special occasions only Patient Tobacco Use Status: Never used Tobacco Tobacco use type: Cigar Physical Exam ED Vital Signs: Vital Signs - 24 hr 11/20/23 18:04 11/20/23 18:20 Temperature 98 F Pulse Rate 95 84 Respiratory Rate 18 18 Blood Pressure 125/78 135/84 Pulse Oximetry 97 98 Oxygen Delivery Method Room Air Room Air BMI result Body Mass Index 33.5 Const General: cooperative, no acute distress, alert and awake Nutritional Appearance: well nourished Orientation/consciousness: patient oriented x3 Limitations: no limitations HENMT Head: Yes normal to inspection and Yes atraumatic Ears: hearing grossly normal bilaterally and external ears normal General nose exam: Normal external nose present, no nasal discharge noted and no epistaxis Face and sinus: Yes normal facial exam, No abrasion and No laceration Mouth: Normal oral and palatal mucosa present, no drooling and no muffled voice Eyes General: appearance normal, both eyes and all related structures Periorbital: periorbital findings normal Eyelids: Yes eyelids normal Conjunctivae: conjunctivae normal Pupils: Equal, round and reactive pupils present EOM: EOMs intact bilaterally Neck Neck: Yes normal visual inspection, Yes full ROM and Yes no lymphadenopathy Chest Chest palpation & inspection: normal inspection of the chest Resp Effort & Inspection: normal respiratory effort and able to speak in complete sentences GI Inspection: Yes normal to inspection General: Yes no CVA tenderness Back/Spine/Pelvis Back: no CVA tenderness Cervical Spine: normal cervical lordosis and cervical ROM normal Thoracic/Lumbar Spine: thoracic and lumbar spine normal to inspection and thoraco-lumbar ROM normal Pelvis: no pain with anterior-posterior compression Neuro General: patient oriented x3 and moves all extremities Cranial nerves: Yes Equal, round and reactive pupils present Cognition (Neuro): normal cognition Motor exam (neuro): 5/5 motor strength present throughout Sensory Exam: Normal double simultaneous stimulation for sensation Coordination: [id number] test normal Extrem General: Yes normal to inspection, Yes full ROM and Yes capillary refill normal Psych Appearance: grossly normal Mental Status: mental status grossly normal Affect: normal affect Attitude: cooperative Thought process: Normal thought process present Thought content: Normal thought content present Insight: Good insight present (Psych) Course Course Course Narrative: RME: 33 yold male presents to the ED for back pain radiating down hip/groin hip since yesterday without any trauma. Xrays, uA and labs ordered. no leg swelling or calf pain. Medications Administered Discontinued Medications Generic Name Dose Route Start Last Admin Trade Name Freq PRN Reason Stop Dose Admin Oxycodone HCl 5 mg 11/20/23 18:28 11/20/23 18:32 Oxycodone Hcl Immed Release 5 Mg Tablet PO 11/20/23 18:29 5 mg ONCE ONE Administration Medical Decision Making Medical Decision Making [facility] Narrative: Patient is a 33 year old assigned male at with a history of biliary colic presenting to the emergency department today with low back pain. Patient's physical exam was unremarkable. I explained my physical exam findings to the patient. I answered all questions asked by the patient. I stressed the importance of the patient taking his medication as prescribed. I stressed the importance of the patient following up with his primary care provider. I stressed the importance of the patient returning to the emergency department immediately if his symptoms were to worsen or if he were to develop any dizziness, shortness of breath, difficulty breathing, chest pain, blurry vision, loss of vision, nausea, vomiting, abdominal pain, fever, chills, back pain, or any other complaints. Patient verbalized agreement and understanding with this treatment plan and discharge. Differential Diagnosis Differential Diagnoses: The differential diagnosis associated with the presentation includes Low back pain Sciatica Lumbar radiculopathy Discharge Plan Discharge Clinical Impression: Sciatica Patient Disposition: Home, Self-Care Instructions: Sciatica (ED) Additional Instructions: DO NOT TAKE THE STEROID BEFORE YOUR SURGERY. SPEAK TO YOUR SURGEON ABOUT IT BEFORE TAKING IT. Follow up with your primary care provider. Return to the emergency department immediately if your symptoms worsen or if you develop any dizziness, shortness of breath, difficulty breathing, chest pain, blurry vision, loss of vision, nausea, vomiting, abdominal pain, fever, chills, back pain, or any other complaints. Prescriptions: No Action hydrocodone-acetaminophen 5-325 mg tablet 1 tab PO Q4-6H PRN (Reason: pain) Qty: 30 0RF Rx Instructions: Partial Fill upon patient request. dextroamphetamine-amphetamine [Adderall XR] 20 mg capsule,extended release 24hr 1 cap PO BID Referrals: Osorio Marcelino MD [Primary Care Provider] - Interventions: ED Discharge Assessment Last Done: 11/20/23 18:57 Discharge Date/Time: 11/20/23 18:58 Print Language: Telugu
[2023-11-20 18:20] VITALS: BP 135/84; PULSE 84; RESP 18; O2SAT 98
[2023-11-20] MEDS: oxyCODONE HCl Immed Release 5 MG TABLET PO (18:32)
== END 2023-11-20 18:58 | disposition home or self-care (01) ==
PROVIDERS: Emergency Provider Emergency Medicine; PCP Internal Medicine
DX: M54.41 Lumbago with sciatica, right side (principal); Z79.899 Other long term (current) drug therapy
CPT/HCPCS: 99283

== ENCOUNTER 2023-11-21 07:00 | Day surgery (SDC) | payer MEDICAID, SELFPAY ==
[2023-11-19 08:16] VITALS: BMI 34.1
--- NOTE | 2023-11-19 14:34 | HO.ANESPROP2 ---
Documented by User: April Gill NP 11/19/23 14:35 HPI - Anesthesia Eval Consult details Narrative: 33yo M for Cholecystectomy Laparoscopic, possible open No PMHx per ER visit PMFSH Active Problems Active Problems: All Active Problems (Updated 11/12/23 @ 14:23 by Kashmir Santacruz MD) Recurrent biliary colic (Acute) Past Medical History Medical History Asthma Surgical History Surgical History Hx of rotator cuff surgery No pertinent past surgical history Social History Social History Alcohol intake: current Alcohol intake frequency: holidays/special occasions only Patient Tobacco Use Status: Never used Tobacco Tobacco use type: Cigar Substance Use Type Other:: gummies Are you DNR?: No Advance Directives: No Advance Directives Information Provided: Yes Meds Allergies Allergy/AdvReac Type Severity Reaction Status Date / Time peanut [PEANUTS] Allergy Severe ANAPHYLAXIS Verified 11/12/23 14:22 Penicillins [PENICILLINS] Allergy Unknown HIVES Verified 11/12/23 14:22 Sulfa (Sulfonamide Allergy swelling Verified 11/12/23 14:22 Antibiotics) cefaclor [From Ceclor] AdvReac GI problems Verified 11/12/23 14:22 naphon Allergy Severe eye Uncoded 11/12/23 14:22 medication Home Medications Medication Instructions Recorded Confirmed Last Taken Type dextroamphetamine-amphetamine ER 1 cap PO BID 11/12/23 11/18/23 History 20 mg 24hr capsule,extend release (Adderall XR) Exam Height,Weight and Vital Signs: Height 5 ft 8 in Weight 101.6 kg Pertinent Lab Results Pertinent Lab Results: Laboratory Tests 11/10/23 11/11/23 10:39 15:18 WBC 5.9 Hgb 14.6 Hct 43.9 Plt Count 251 Sodium 141 Potassium 3.4 Chloride 105 Carbon Dioxide 24 BUN 18 H Creatinine 0.95 Assessment and Plan Assessment Anesthesia Assessment: Chart Reviewed Documented by User: Daisy Delatorre MD 11/21/23 09:11 HPI - Anesthesia Eval Consult details Narrative: 33yo M for Cholecystectomy Laparoscopic, possible open No PMHx per ER visit, on adderal for ADHD [facility] Past Medical History Medical History Asthma Family History Family history of problems with anesthesia: No Surgical History Surgical History Hx of rotator cuff surgery No pertinent past surgical history History of Problems with Anesthesia: No Social History Social History Alcohol intake: current Alcohol intake frequency: holidays/special occasions only Patient Tobacco Use Status: Never used Tobacco Tobacco use type: Cigar Substance Use Type Other:: gummies Are you DNR?: No Advance Directives: No Advance Directives Information Provided: Yes Meds Allergies Allergy/AdvReac Type Severity Reaction Status Date / Time peanut [PEANUTS] Allergy Severe ANAPHYLAXIS Verified 11/12/23 14:22 Penicillins [PENICILLINS] Allergy Unknown HIVES Verified 11/12/23 14:22 Sulfa (Sulfonamide Allergy swelling Verified 11/12/23 14:22 Antibiotics) cefaclor [From Ceclor] AdvReac GI problems Verified 11/12/23 14:22 naphon Allergy Severe eye Uncoded 11/12/23 14:22 medication Home Medications Medication Instructions Recorded Confirmed Last Taken Type dextroamphetamine-amphetamine ER 1 cap PO BID 11/12/23 11/18/23 History 20 mg 24hr capsule,extend release (Adderall XR) Exam Airway Mallampati Class: II TM Dist: >3cm Neck ROM: Full Heart: rrr Lungs: cta Assessment and Plan Assessment Anesthesia Assessment: Anesthesia Plan Discussed Final Anesthetic Review Family History of Problems with Anesthesia: No History of Problems with Anesthesia: No NPO: Yes ASA Class: II Final Preanesthetic Review: No Changes in Pt Med Stat, Meds/Allgs Chart Reviewed, Consent Obtained/Reviewed and Anes Risks/Benef Reviewed Patient Risk: Low Procedure Risk: Intermediate Anesthetic Plan Anesthetic Plan: GA Disposition: Standard PACU
--- NOTE | 2023-11-20 11:55 | MHC.SHP ---
Pre-Procedural Eval Section A Date of Service: 11/20/23 The patient is an INPATIENT: No Changes since office visit: No Cold of Flu in the past 2 weeks, No New Medical Problems, No Changes in Medication and No Patient answered all questions The History & Physical has been completed within 30 days and I have reviewed it.: Yes Section B Chief Complaint: Calculus of bile duct without cholangitis or richard Allergies: Allergies Allergy/AdvReac Type Severity Reaction Status Date / Time peanut [PEANUTS] Allergy Severe ANAPHYLAXIS Verified 11/12/23 14:22 Penicillins [PENICILLINS] Allergy Unknown HIVES Verified 11/12/23 14:22 Sulfa (Sulfonamide Allergy swelling Verified 11/12/23 14:22 Antibiotics) cefaclor [From Ceclor] AdvReac GI problems Verified 11/12/23 14:22 naphon Allergy Severe eye Uncoded 11/12/23 14:22 medication Plan I have reviewed the history and physical and performed a pertinent physical examination on my patient. No changes have occurred unless specified. Time Spent With Patient Time: Total time managing care of this patient today ____ minutes.
[2023-11-21] VITALS (8 sets, daily range): BP systolic 152–163; BP diastolic 77–101; PULSE 82–99; RESP 16–20; TEMP 36.4–36.9; O2SAT 98–100; BMI 33.4
[2023-11-21] MEDS: Lactated Ringers 1,000 ML 100 ML IVCONT (07:48)
--- NOTE | 2023-11-21 10:47 | P.OP_ITS ---
Operative Note Operative Note Date of Service: 11/21/23 Narrative: Preoperative diagnosis: [] recurrent biliary colic Postop diagnosis: [] same Procedure [] laparoscopic cholecystectomy Surgeon: [] Noam Faculty Neuropsychologist: [] Bhavesh Type of Anesthesia: [] general Indication for surgery: [] corpulent abdomen. Gallbladder with dense omental adhesions to it Findings: [] patient brought to the operating room, placed on operative table in supine position, after adequate level of general anesthesia was induced, the patient's abdomen was prepped and draped in usual sterile fashion. Using a supraumbilical curvilinear incision, Persaud technique was used to insufflate the abdominal cavity to 15 mm of CO2. Upper midline and right subcostal ports were placed under direct laparoscopic view, and the patient placed in reverse Trendelenburg position, and tilted to the left. Gallbladder was grasped using laparoscopic graspers and retracted superiorly and laterally. Omental adhesions were swept off the gallbladder where the hilum was approached. The cystic artery and cystic duct were each identified, circumferentially skeletonized, traced directly into the gallbladder, and critical view obtained. Each was clipped proximally x2, distally x1, and transected. Gallbladder which was moderately intrahepatic was then cauterized from the gallbladder fossa using Bovie. Specimen was placed in Endo-Catch bag, a retrieved through the umbilical port. The abdominal cavity was copiously irrigated and secured hemostasis. All ports were removed under direct laparoscopic view. Wounds were closed in the following manner; umbilical wound had its fascia reapproximated using interrupted 0 Vicryl sutures. Skin wounds were closed in subcuticular 4-0 Vicryl sutures followed by Steri-Strips and sterile dressings. Wounds were infiltrated 0.5% Marcaine at completion. Sponge, needle, and instrument counts reported correct. Patient tolerated the procedure well and emerged anesthesia stable condition. EBL minimal
== END 2023-11-21 12:09 | disposition home or self-care (01) ==
PROVIDERS: PCP Internal Medicine; Visit Provider Surgery
PROC: 0FT44ZZ Resection of Gallbladder, Percutaneous Endoscopic Approach (ICD-10-PCS; CPT 47562; principal; 2023-11-21 08:40)
DX: K80.10 Calculus of gallbladder with chronic cholecystitis without obstruction (principal); K82.8 Other specified diseases of gallbladder; R14.0 Abdominal distension (gaseous); R59.9 Enlarged lymph nodes, unspecified; J45.909 Unspecified asthma, uncomplicated; Z79.899 Other long term (current) drug therapy; Z88.0 Allergy status to penicillin; Z88.1 Allergy status to other antibiotic agents; Z88.2 Allergy status to sulfonamides
CPT/HCPCS: 47562; 88304; J0131; J0665; J0736; J1100; J1885; J2250; J2405; J2704; J3010

== ENCOUNTER → 2023-11-21 07:00 | Outpatient (BNV) | payer MEDICAID, SELFPAY | PROVIDERS: PCP Internal Medicine; Visit Provider Surgery | DX: K80.50 Calculus of bile duct without cholangitis or cholecystitis without obstruction (principal) | CPT/HCPCS: 47562 ==

== ENCOUNTER 2023-11-29 10:46 | Outpatient (AMB) | payer MEDICAID, SELFPAY ==
[2023-11-29 10:54] VITALS: BP 137/67; PULSE 103
--- NOTE | 2023-11-29 10:54 | A.OFFVIS_ITS ---
Intake Vital Signs 11/29/23 10:54 Weight 220 lb BP 137/67 Blood Pressure Location Rt brachial Position Sitting Pulse 103 H Intake Visit Reasons: S/P lap richard Intake Note: Patient here s/p lap richard on 11/21/23. Patient healing well. Denies pain, oozing. Never took rx pain meds. 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 He has no wound issues or complaints. He is tolerating his diet. Having normal bowel habits. PFSH Medical History Asthma Surgical History History of laparoscopic cholecystectomy (11/21/23) Hx of rotator cuff surgery No pertinent past surgical history Social History Alcohol intake: current Alcohol intake frequency: holidays/special occasions only Patient Tobacco Use Status: Never used Tobacco Tobacco use type: Cigar Physical Exam Vital Signs: Last Vital Signs Pulse 103 H 11/29/23 10:54 BP 137/67 11/29/23 10:54 Eyes Other: Anicteric GI Other: Abdomen soft. All wounds clean dry and intact. Assessment & Plan Assessment & Plan (1) Status post laparoscopic cholecystectomy: Code(s): Z90.49 - Acquired absence of other specified parts of digestive tract Plan Patient is doing well. He has been given local instructions including avoiding strenuous activities for next few weeks time and will otherwise follow up p.r.n.. All questions answered. Coding Level of Care Code Global (98245) Diagnoses Status post laparoscopic cholecystectomy Z90.49
== END 2023-11-29 11:09 | disposition home or self-care (01) ==
PROVIDERS: PCP Internal Medicine; Visit Provider Surgery
DX: Z90.49 Acquired absence of other specified parts of digestive tract (principal)
CPT/HCPCS: 99024

== ENCOUNTER → 2023-11-29 10:46 | Outpatient (BNVA) | payer MEDICAID, SELFPAY | PROVIDERS: PCP Internal Medicine; Visit Provider Surgery | DX: Z09 Encounter for follow-up examination after completed treatment for conditions other than malignant neoplasm (principal); Z90.49 Acquired absence of other specified parts of digestive tract | CPT/HCPCS: 99212 ==

== ENCOUNTER 2024-09-15 10:46 | Outpatient (REF) | payer MEDICAID, SELFPAY ==
[2024-09-15 11:11] LABS: MANUAL DIFF FLAG NO
[2024-09-15 11:33] LABS: Basophils Percent Auto 0.3 % (0-2); Eosinophils Absolute Auto 0.2 X10*3/uL (0.0-0.4); Eosinophils Percent Auto 2.5 % (0-4); Hematocrit 47.1 % (42.0-52.0); Hemoglobin 15.5 g/dl (14.0-18.0); Imm Gran Abs Auto 0.02 X10*3/uL (0.00-0.03); Imm Gran Pct Auto 0.3 % (0.0-0.4); Lymphocytes Absolute Auto 3.3 X10*3/uL (1.2-4.9); Lymphocytes Percent Auto 48.7 % (20-40); Mean Corpuscular HGB Conc 32.9 g/dl (31.0-36.0); Mean Corpuscular Hemoglobin 30.9 pg (27.0-33.0); Mean Corpuscular Volume 93.8 fL (80.0-98.0); Mean Platelet Volume 11.1 fL (9.4-12.4); Monocytes Absolute Auto 0.6 X10*3/uL (0.1-1.2); Monocytes Percent Auto 8.4 % (2-11); Neutrophils Absolute Auto 2.7 x10*3/uL (2.0-8.3); Neutrophils Percent Auto 39.8 % (45-73); Platelet Count 224 X10*3/uL (160-400); Red Blood Count 5.02 X10*6/uL (4.60-5.80); Red Cell Distribution Width 11.2 % (11.0-16.0); White Blood Count 6.8 X10*3/uL (4.8-10.8)
[2024-09-15 12:15] LABS: Alanine Aminotransferase 32 U/L (0-40); Albumin Level 4.5 g/dL (3.5-5.0); Alkaline Phosphatase 59 U/L (39-117); Anion Gap 11 (12-20); Aspartate Amino Transferase 20 U/L (5-37); Bilirubin Total 1.4 mg/dL (0.0-1.0); Blood Urea Nitrogen 12 mg/dL (9-16); Calcium 9.5 mg/dL (8.4-10.2); Carbon Dioxide 25 mmol/L (22-29); Chloride 108 mmol/L (96-108); Cholesterol 189 mg/dL (<200); Estimated Glomerular Filt Rate > 60; Glucose Fasting 86 mg/dL (60-99); HDL Cholesterol 57 mg/dL (>40); LDL Cholesterol Calculated 117 mg/dL (<100); Potassium 4.1 mmol/L (3.3-5.1); Sodium 140 mmol/L (135-145); Total Protein 7.7 g/dL (6.5-8.0); Triglycerides 78 mg/dL (<150)
== END 2024-09-15 10:47 | disposition home or self-care (01) ==
LOC: HO.LAB 10:46
PROVIDERS: PCP Internal Medicine; Visit Provider Internal Medicine
DX: E78.00 Pure hypercholesterolemia, unspecified (principal); F90.9 Attention-deficit hyperactivity disorder, unspecified type; M54.50 Low back pain, unspecified
CPT/HCPCS: 36415; 80053; 80061; 85025

== ENCOUNTER 2025-05-01 06:43 | Emergency (ER) | payer BC, SELFPAY ==
--- NOTE | ~2025-05-01 | XR_ITS ---
CLINICAL HISTORY: fall, injury 3 view left ankle Comparison: None Findings: Bones intact. No dislocations. No significant arthritic change or erosions. No ankle effusion. No radiopaque foreign body. IMPRESSION: 1. No acute findings. This document has been electronically signed by: Bismark Calvo MD on 05/01/2025 08:56:17
--- NOTE | ~2025-05-01 | XR_ITS ---
CLINICAL HISTORY: FOOSH, noted swelling to wrist 4 view right wrist Comparison: None Findings: No fractures or dislocations. No significant loss of joint space, osteophyte, or erosions. No radiopaque foreign body. IMPRESSION: 1. No acute findings This document has been electronically signed by: Fred Gomez MD on 05/01/2025 09:58:34
--- NOTE | ~2025-05-01 | XR_ITS ---
CLINICAL HISTORY: fall, injury 3 view right hand Comparison: None Findings: No fractures or dislocations. No significant loss of joint space or osteophytes. No erosions. No radiopaque foreign body. IMPRESSION: 1. No acute findings. This document has been electronically signed by: Bismark Calvo MD on 05/01/2025 08:51:43
[2025-05-01 06:49] VITALS: BP 153/93; PULSE 77; RESP 18; TEMP 36.2; O2SAT 100; BMI 31.7
--- NOTE | 2025-05-01 08:10 | ED_ITS ---
HPI - Fall General Chief Complaint: Fall Stated Complaint: fell off ladder Time Seen by Provider: 05/01/25 08:01 Source: patient Mode of arrival: ambulatory Limitations: no limitations History of Present Illness ED Provider: YAMEL LAMAR PA-C HPI Narrative: 34 year old male presents to the ED today for evaluation of right wrist/hand pain and left ankle pain s/p mechanical fall off ladder yesterday. Patient states he was ascending a pull-down ladder to his attic when 1 of the steps broke, causing him to fall. Reports getting his left ankle caught in a stat and falling over the side, catching himself with his right hand and eventually landing on his right buttock. Denies head strike or LOC. Not on anticoagulation. Since this time endorses swelling to right wrist and bruising to medial aspect of left ankle. He is able to bear weight with discomfort. Has been applying ice at home which relieves pain. He also trialed Tylenol last night without much relief. Denies any back or buttock pain, headache, neck pain, vision changes, numbness/tingling/weakness of the extremities, saddle anesthesia, bowel or bladder incontinence or retention. Related Data Previous Rx's ?Medication ?Instructions ?Recorded dextroamphetamine-amphetamine ER 1 cap PO BID #60 caps 03/01/25 20 mg 24hr capsule,extend release (Adderall XR) dextroamphetamine-amphetamine 10 10 mg PO BID #60 tabs 04/21/25 mg tablet (Adderall) Allergies Allergy/AdvReac Type Severity Reaction Status Date / Time peanut [PEANUTS] Allergy Severe ANAPHYLAXIS Verified 05/01/25 06:52 Penicillins [PENICILLINS] Allergy Unknown HIVES Verified 05/01/25 06:52 Sulfa (Sulfonamide Allergy swelling Verified 05/01/25 06:52 Antibiotics) cefaclor [From Ceclor] AdvReac GI problems Verified 05/01/25 06:52 naphon Allergy Severe eye Uncoded 11/29/23 10:56 medication Review of Systems Review of Systems: Constitutional: No fever, chills, fatigue, night sweats, weight changes ENT/Mouth: No ear pain, hearing loss, nasal congestion, sinus pain, rhinorrhea, sore throat Eyes: No eye pain, swelling, redness, vision changes, discharge Cardio: No chest pain, palpitations, ADKINS, orthopnea, peripheral edema Pulm: No SOB, cough, sputum, wheezing, dyspnea, hemoptysis GI: No nausea, vomiting, hematemesis, abdominal pain, diarrhea, constipation, hematochezia, melena : No irregular bleeding, dysuria, frequency, urgency, hesitancy, hematuria, flank pain, urinary flow changes, urinary incontinence or retention MSK: No back pain, neck pain, joint pain, myalgias, +right wrist/hand pain, +left ankle pain Skin: No lesions, rashes Neuro: No weakness, numbness, paresthesias, LOC, dizziness, headache Psych: No anxiety/panic, depression, SI/HI, AH/VH All other systems reviewed and are negative. Yes all other systems are reviewed and are negative [facility] Past Medical History Attestation statement: The following information was validated with the patient. Source: old records reviewed and nursing notes reviewed Medical History Asthma Surgical History History of laparoscopic cholecystectomy (11/21/23) Hx of rotator cuff surgery No pertinent past surgical history Social History Social History Alcohol intake: current Alcohol intake frequency: holidays/special occasions only Patient Tobacco Use Status: Never used Tobacco Tobacco use type: Cigar Smoked in Last 30 Days: No Use of substances other than those prescribed or required for medical reasons: No Advance Directives: No Advance Directives Information Provided: Yes Do you have a plan to hurt others: No Plan Physical Exam Vital Signs: Vital Signs: Last Vital Signs Temp 97.2 F 05/01/25 06:49 Pulse 63 05/01/25 08:47 Resp 18 05/01/25 08:47 BP 119/78 05/01/25 08:47 Pulse Ox 97 05/01/25 08:47 O2 Del Method Room Air 05/01/25 08:47 BMI result Body Mass Index 31.7 Patient is hypertensive, vitals are otherwise WNL General: well appearing, in no acute distress. Skin: warm, dry, intact. No rashes or lesions. Head: Normocephalic, atraumatic. EENT: Hearing is intact b/l. Conjunctiva clear. PERRLA. EOM intact. Moist mucous membranes.? Neck: No midline cervical spine tenderness or step-off deformity. Cardiac: Chest wall symmetric. RRR Lungs: Normal respiratory effort without accessory muscle use. CTA bilaterally Abdomen: Soft, non-tender, non-distended. No rebound tenderness or guarding. P ositive BS x4. no overlying ecchymosis. Back: No midline spinous or paraspinal tenderness. No step off deformity. Ext: +minimal ecchymosis noted to medial aspect of left ankle just distal to medial malleolus. No noted swelling or deformity. Full ROM intact to left ankle with minimal discomfort. Able to move all toes on left foot. pedal pulses intact. Ambulating with steady gait. Noted swelling to right wrist along with swelling to right 3rd and 4th digits. Full ROM intact to wrist/ digits. finger strength intact. etiquette coach strength intact. No obvious deformities. 2+ radial pulse intact. Neuro: AOx3. Normal speech. Strength 5/5 intact throughout. No saddle anesthesia. Sensation intact to light touch. NV intact distally. Ambulating with steady gait. Course Course Course Narrative: XRs left ankle unremarkable. no noted fracture. XRs right hand/wrist without noted fracture. Likely contusion to ankle/ wrist secondary to fall. Educated on RICE therapy - advised tylenol/motrin at home. ambulating with steady gait. Patient has remained stable throughout ED visit today. Discussed worrisome signs and symptoms and when to return to the ED. All questions answered at this time. Patient is agreeable with disposition and stable for discharge. Medications Administered Discontinued Medications Generic Name Dose Route Start Last Admin Trade Name Lewisq PRN Reason Stop Dose Admin Ketorolac Tromethamine 30 mg 05/01/25 08:26 05/01/25 08:54 Ketorolac Tromethamine 30 Mg/Ml Vial IM 05/01/25 08:27 30 mg ONCE ONE Administration Medical Decision Making Medical Decision Making MDM Narrative: 34 year old male presents to the ED today for evaluation of right wrist/hand pain and left ankle pain s/p mechanical fall off ladder yesterday. patient is mildly hypertensive, vitals are otherwise wnl. On exam, minimal ecchymosis noted to medial aspect of left ankle just distal to medial malleolus. No noted swelling or deformity. Full ROM intact to left ankle with minimal discomfort. Able to move all toes on left foot. pedal pulses intact. Ambulating with steady gait. Noted swelling to right wrist along with swelling to right 3rd and 4th digits. Full ROM intact. No obvious deformity. 2+ radial pulse intact. Differential diagnosis includes wrist sprain/ strain, wrist fracture, wrist dislocation, wrist contusion. Ankle contusion/fracture/dislocation/ sprain/strain. No signs of head trauma + no head strike. Plan for xrays, pain control, and re-evaluation. Differential Diagnosis Differential Diagnoses: The differential diagnosis associated with the presentation includes as above. Admission/Observation not indicated. Independent Interpretation I performed an independent interpretation of an: Plain X-Ray Interpretation: xr right hand/wrist without fracture xr left ankle without fracture Radiology Impression Discussion of test interpretation with radiology: I have reviewed the radiologist's reading. Radiologist Impression: Date of Service: 05/01/25 Procedure(s): XR ankle LT min 3V Accession Number(s): [id number] cc: Cordell Sparrow MD; Physician,Unknown ~ CLINICAL HISTORY: fall, injury 3 view left ankle Comparison: None Findings: Bones intact. No dislocations. No significant arthritic change or erosions. No ankle effusion. No radiopaque foreign body. IMPRESSION: 1. No acute findings. This document has been electronically signed by: Bismark Calvo MD on 05/01/2025 08:56:17 Date of Service: 05/01/25 Procedure(s): XR hand RT min 3V Accession Number(s): [id number] cc: Cordell Sparrow MD; Physician,Unknown ~ CLINICAL HISTORY: fall, injury 3 view right hand Comparison: None Findings: No fractures or dislocations. No significant loss of joint space or osteophytes. No erosions. No radiopaque foreign body. IMPRESSION: 1. No acute findings. This document has been electronically signed by: Bismark Calvo MD on 05/01/2025 08:51:43 Date of Service: 05/01/25 Procedure(s): XR wrist RT min 3V Accession Number(s): [id number] cc: Physician,Unknown ; Yamel Lamar~ CLINICAL HISTORY: FOOSH, noted swelling to wrist 4 view right wrist Comparison: None Findings: No fractures or dislocations. No significant loss of joint space, osteophyte, or erosions. No radiopaque foreign body. IMPRESSION: 1. No acute findings This document has been electronically signed by: Fred Gomez MD on 05/01/2025 09:58:34 External Record Review External record reviewed: Inpatient record Prescription Management I considered prescription management with: Pain Medication (tylenol/motrin) Social Determinants Patient?s care significantly limited by Social Determinants of Health including: Other Social Determinant of Health Critical Care Time Critical Care Time Critical Care Time: No Discharge Plan Discharge Clinical Impression: Contusion of ankle, left, Sprain of right wrist Patient Disposition: Home, Self-Care Instructions: Contusion in Adults (ED), Wrist Sprain (ED) Additional Instructions: You have been evaluated in the Emergency Department today for left ankle and right wrist/ finger pain after a fall off of a ladder yesterday. Xrays of your left ankle and right hand/wrist do not demonstrate any fractures or dislocations. I recommend RICE therapy - rest, ice, compress, elevate (above heart level) the wrist/ ankle. I recommend you take 600mg ibuprofen every 6 hours or tylenol 650mg every 6 hours as needed for pain. If needed, you can alternate these medications so that you take one medication every 3 hours. For example, at noon take ibuprofen, then at 3pm take tylenol, then at 6pm take ibuprofen.? If symptoms persist >1 week, I recommend follow up with PCP and / or orthopedic doctor. You have been provided with a referral. You may call them to make an appointment, they will not call you. Return to the Emergency Department if you experience worsening pain, numbness, tingling, change of color in your toes/fingers, or any other concerning symptoms. Prescriptions: No Action dextroamphetamine-amphetamine [Adderall XR] 20 mg capsule,extended release 24hr 1 cap PO BID Qty: 60 0RF dextroamphetamine-amphetamine [Adderall] 10 mg tablet 10 mg PO BID Qty: 60 0RF Rx Instructions: administer doses at least 4-6 hours apart Referrals: [facility] [Provider Group] Stand Alone Forms: Work/School Release Print Language: Bangladeshi
[2025-05-01 08:47] VITALS: BP 119/78; PULSE 63; RESP 18; O2SAT 97
[2025-05-01] MEDS: Ketorolac Tromethamine 30 MG/ML VIAL IM (08:54)
[2025-05-01 10:00] VITALS: BP 119/78; PULSE 63; RESP 18; TEMP 36.7; O2SAT 97
[2025-05-01 11:16] VITALS: BP 119/78; PULSE 63; RESP 18; TEMP 36.7; O2SAT 97
== END 2025-05-01 11:17 | disposition home or self-care (01) ==
PROVIDERS: Emergency Provider Emergency Medicine
DX: S90.02XA Contusion of left ankle, initial encounter (principal); S63.501A Unspecified sprain of right wrist, initial encounter; W11.XXXA Fall on and from ladder, initial encounter; Y93.89 Activity, other specified; Y92.018 Other place in single-family (private) house as the place of occurrence of the external cause; Y99.9 Unspecified external cause status
CPT/HCPCS: 73110; 73130; 73610; 96372; 99284; J1885

== ENCOUNTER → 2025-05-01 07:30 | Outpatient (BNV) | payer BC, SELFPAY | PROVIDERS: Emergency Provider Emergency Medicine; Visit Provider Specialist | DX: S69.91XA Unspecified injury of right wrist, hand and finger(s), initial encounter (principal); S99.912A Unspecified injury of left ankle, initial encounter; W19.XXXA Unspecified fall, initial encounter; R22.31 Localized swelling, mass and lump, right upper limb | CPT/HCPCS: 73110; 73130; 73610 ==

== ENCOUNTER 2025-05-21 08:55 | Outpatient (AMB) | payer BC, SELFPAY ==
--- NOTE | 2025-05-21 08:59 | MHC.OFFVIS ---
Vital Signs 05/21/25 09:00 Height 5 ft 9 in Weight 215 lb BMI 31.7 Intake Visit Reasons: ER f/u Right wrist sprain Intake Note: Jayden is a 34 year old right hand dominant male who presents today for an emergency department follow up of right wrist sprain, DOI: 04/30/25. Patient reports that he was climbing a ladder to his attic when he heard a crack and his foot got stuck causing him to fall. He was seen at [facility] where x-rays were taken and referred to orthopedics. Patient complains of ongoing swelling in his wrist and his middle finger. States his swelling makes it difficult to bend his finger fully down to make a fist. He is limited in his ROM in his wrist. He does not complain of pain just discomfort from the swelling. No numbness or tingling. 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 Allergies peanut (PEANUTS) Allergy (Severe, Verified 05/21/25 09:19) ANAPHYLAXIS Penicillins (PENICILLINS) Allergy (Unknown, Verified 05/21/25 09:19) HIVES Sulfa (Sulfonamide Antibiotics) Allergy (Verified 05/21/25 09:19) swelling cefaclor (From Ceclor) Adverse Reaction (Verified 05/21/25 09:19) GI problems naphon Allergy (Severe, Uncoded 05/21/25 09:19) eye medication HPI HPI ER f/u Right wrist sprain: Details: Jayden is a 34 year old right hand dominant male who presents today for an emergency department follow up of right wrist sprain, DOI: 04/30/25. Patient reports that he was climbing a ladder to his attic when he heard a crack and his foot got stuck causing him to fall. He was seen at [facility] where x-rays were taken and referred to orthopedics. Patient complains of ongoing swelling in his wrist and his middle finger. States his swelling makes it difficult to bend his finger fully down to make a fist. He is limited in his ROM in his wrist. He does not complain of pain just discomfort from the swelling. No numbness or tingling. 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 [facility] Medical History Asthma Surgical History History of laparoscopic cholecystectomy (11/21/23) Hx of rotator cuff surgery No pertinent past surgical history Social History (Updated 05/21/25 @ 09:12 by CIPRIANO Castorena) Alcohol intake: current Alcohol intake frequency: holidays/special occasions only Patient Tobacco Use Status: Never used Tobacco Tobacco use type: Cigar Current occupation: right hand dominant Review of Systems Const All systems reviewed & are unremarkable except as noted in HPI and below Physical Exam Vital Signs: BMI result Body Mass Index 31.7 Extrem Other: Patient is alert, oriented, and in no acute distress. Neuro: Normal sensation of the tips of all digits of the right hand at this time Vascular: Cap refill brisk Pain: No tenderness to palpation about right middle finger, right ring finger, or right wrist Patient does report some very minor discomfort when making a closed fist with the right middle finger Patient also reports some discomfort with range of motion of the right wrist, primarily in the dorsal aspect ROM: Patient is able to make a closed fist and extend all digits of the right hand fully with encouragement Patient is able to flex the right wrist to approximately 50 degrees and extend to approximately 40 degrees at this time Skin: No lacerations or abrasions. General: No ecchymosis, erythema, or evidence of infection. Psych: Appears grossly normal Affect normal Attitude cooperative Office Procedures AMB Fracture Care Fracture Billing Code: Fracture Billing Code Results Reviewed Results Reviewed: X-rays obtained in the office today and independently reviewed by me, Yg Landers PA-C, demonstrate minimally displaced avulsion fracture of the volar and proximal middle phalanx of the right middle finger. Assessment & Plan Assessment & Plan (1) Fracture of finger, middle phalanx, right, closed: Code(s): S62.629A - Displaced fracture of middle phalanx of unspecified finger, initial encounter for closed fracture Category: Medical Plan 1. Avulsion fracture of the right middle finger Date of injury 05/01/2025 Patient is educated about this injury Patient is educated about the typical recovery course At this time, patient is advised he should north tape the middle and ring fingers together to act as a moving splint allowing movement while the fracture continues to heal X-rays negative for any acute bony pathology of the right wrist Patient will be referred to occupational therapy to work on range of motion and eventually strengthening of the right hand and wrist 5 lb weight limit until follow-up Patient is amenable to this plan Follow-up in 4 weeks Orders: Orders XR hand RT min 3V Today M79.641 - Pain in right hand Coding Level of Care Code New Pt Level 3 (90862) Diagnoses Fracture of finger, middle phalanx, right, closed S62.629A CPT Codes Fracture Care - Fracture Billing Code: Fracture Billing Code ([id number])
[2025-05-21 09:00] VITALS: BMI 31.7
== END 2025-05-21 10:01 | disposition home or self-care (01) ==
LOC: HO.HOS 08:55
PROVIDERS: PCP Internal Medicine
DX: S62.622A Displaced fracture of middle phalanx of right middle finger, initial encounter for closed fracture (principal)
CPT/HCPCS: 99203

== ENCOUNTER 2025-05-21 08:55 | Outpatient (REF) | payer BC, SELFPAY ==
--- NOTE | ~2025-05-21 | XR_ITS ---
EXAMINATION: XR HAND, RIGHT CLINICAL INFORMATION: M79.641 - Pain in right hand COMPARISON: May 01, 2025. TECHNIQUE: PA, lateral, and oblique views of the right hand. FINDINGS: No acute cortical disruption or gross malalignment. No lytic or blastic lesions. No subchondral cyst formation. No marginal osteophyte formation. No joint space narrowing. No metallic or radiopaque foreign body. No subcutaneous emphysema. XR/XR hand RT min 3V IMPRESSION: No acute fracture or dislocation. No gross change. Electronically signed by: Tyson Olivo MD 05/21/2025 09:57 AM EDT
== END 2025-05-21 08:56 | disposition home or self-care (01) ==
LOC: HO.HOSX 08:55
PROVIDERS: PCP Internal Medicine
DX: M79.641 Pain in right hand (principal); S63.501A Unspecified sprain of right wrist, initial encounter; S62.622A Displaced fracture of middle phalanx of right middle finger, initial encounter for closed fracture; X50.1XXA Overexertion from prolonged static or awkward postures, initial encounter; Y93.39 Activity, other involving climbing, rappelling and jumping off; Y92.009 Unspecified place in unspecified non-institutional (private) residence as the place of occurrence of the external cause; Y99.9 Unspecified external cause status
CPT/HCPCS: 73130

== ENCOUNTER → 2025-05-21 09:26 | Outpatient (BNV) | payer BC, SELFPAY | PROVIDERS: PCP Internal Medicine; Visit Provider Radiology Diagnostic Radiology | DX: M79.641 Pain in right hand (principal) | CPT/HCPCS: 73130 ==

== ENCOUNTER 2025-05-24 07:59 | Outpatient (AMB) | payer BC, SELFPAY ==
--- NOTE | 2025-05-24 08:08 | MHC.PC.OV ---
Vital Signs 05/24/25 08:21 Height 5 ft 9 in Weight 97.52 kg BMI 31.7 BP 110/72 Pulse 75 Pulse Oximetry (%) 96 Intake Visit Reasons: refills Allergies peanut (PEANUTS) Allergy (Severe, Verified 05/21/25 09:19) ANAPHYLAXIS Penicillins (PENICILLINS) Allergy (Unknown, Verified 05/21/25 09:19) HIVES Sulfa (Sulfonamide Antibiotics) Allergy (Verified 05/21/25 09:19) swelling cefaclor (From Ceclor) Adverse Reaction (Verified 05/21/25 09:19) GI problems naphon Allergy (Severe, Uncoded 05/21/25 09:19) eye medication HPI HPI Comments History of Present Illness Details 34-year-old male with history of asthma, hyperlipidemia, ADHD presents to the office today for management of chronic conditions as well as to establish care. ADHD- effective overall. Still has some difficulty sitting still and keeping attention when not actively engaged. He is able to start i and complete projects. He is often fidgety but overall feels the medication is very effective in improving overall functioning Mild intermittent asthma- no recent exacerbation. Has not needed albuterol inhaler recently. Respirator can trigger HLD- not on statin. Due on labs. R sided sciatica- r/t synovial cyst L3-L4. Saw Concerns: Abnormal skin lesion of the right forearm. Reports he was bit by a dog several years ago and did receive rabies vaccination. Since then, has developed an hyperpigmented, raised, firm lesion Health Maintenance: Due for colonoscopy age 43 ROS: General: No fevers, malaise, unintentional weight loss HEENT: No blurred vision, diplopia. No sore throat, nasal congestion, rhinorrhea, sinus pain, ear pain Cardiovascular: No chest pain, palpitations, or leg edema Respiratory: No shortness of breath, wheezing, cough GI: No abdominal pain, nausea, vomiting, diarrhea, constipation, melena, hematochezia : No dysuria, hematuria, increased urinary frequency, decreased urinary output MSK: No myalgia, back pain Neuro: No headaches, weakness, paresthesias Skin: No rashes or lesions. See HPI EXAM: Constitutional - Awake and Alert, No apparent distress Eyes - PERRL Cardiovascular - S1S2, RRR, No edema Respiratory - Normal lung expansion, Normal respiratory effort, No respiratory distress, CTA bilaterally Extremities - no calf tenderness bilaterally, no swelling Skin - Warm/Dry. [place] hyperpigmented, firm raised lesion on the ventral aspect of the right forearm Neurological - Alert & oriented x3 Psychological - Appropriate affect , fidgety [facility] Medical History (Updated 05/24/25 @ 08:27 by WALE Clements) Synovial cyst of lumbar spine Hyperlipidemia ADHD Asthma Surgical History History of laparoscopic cholecystectomy (11/21/23) Hx of rotator cuff surgery No pertinent past surgical history Social History (Updated 05/21/25 @ 09:12 by CIPRIANO Castorena) Alcohol intake: current Alcohol intake frequency: holidays/special occasions only Patient Tobacco Use Status: Never used Tobacco Tobacco use type: Cigar Current occupation: right hand dominant Questionnaire PHQ-9 Over the last 2 weeks, how often have you been bothered by any of the following problems? 1. Little interest or pleasure in doing things: not at all 2. Feeling down, depressed, or hopeless: not at all 3. Trouble falling or staying asleep, or sleeping too much: not at all 4. Feeling tired or having little energy: not at all 5. Poor appetite or overeating: not at all 6. Feeling bad about yourself - or that you are a failure or have let yourself or your family down: not at all 7. Trouble concentrating on things, such as reading the newspaper or watching television: several days 8. Moving or speaking so slowly that other people could have noticed. Or the opposite - being so fidgety or restless that you have been moving around a lot more than usual: several days 9. Thoughts that you would be better off or of hurting yourself in some way: not at all Total score: 2 Depression Screening Interpretation: Negative Depression Screening Done: Yes 75933 - PHQ-9 Billing: Yes Source: Developed by Drs. Arturo Bagley, Ángela Bates, Melo Gallegos and colleagues, with an educational les from [employer]. Thrive Questionnaire What is your living situation today?: I have a steady place to live Within the past 12 months, did the food you bought not last and you didn't have the money to get more?: Never true Within the past 12 months, did you worry whether your food would run out before you got money to buy more?: Never true Do you have trouble paying for medicines?: No Do you have trouble getting transportation to medical appointments?: No Do you have trouble paying your heating and electricity bill?: No Do you have trouble taking care of your child, family member or friend?: No Do you have trouble with day-to-day activities such as bathing, preparing meals, shopping, managing finances, etc.?: No Are you currently unemployed and looking for a job?: No Are you interested in more education?: No THRIVE Score: 0 GI-7 AMB Questionnaire GI-7 Feeling nervous, anxious, or on edge: 0 = Not at all Not being able to stop or control worryin = Not at all Worrying too much about different things: 0 = Not at all Trouble relaxin = Not at all Being so restless that it is hard to sit still: 0 = Not at all Becoming easily annoyed or irritable: 0 = Not at all Feeling afraid as if something awful might happen: 0 = Not at all Total GI-7 score (0-4 normal; 5-9 mild; 10-14 moderate; 15-21 severe): 0 Source: Developed by Drs. Arturo Bagley, Ángela Bates, Melo Gallegos and colleagues, with an educational les from [employer]. Physical exam (Primary Care) Tobacco/Smoking Status: Tobacco use Status Patient Tobacco Use Status Never used Tobacco 05/24/25 08:08 Tobacco use type Cigar 05/24/25 08:08 Depression Screening Interpretation: Negative Coding Level of Care Code New Pt Level 4 (13573) Complex EM visit Add On G2211 Diagnoses ADHD F90.9 Hyperlipidemia E78.5 Asthma J45.909 Abnormal skin growth D49.2 Additional Codes PHQ-9 - 88963 - PHQ-9 Billing: Yes ([id number]) Assessment & Plan Assessment & Plan (1) ADHD: Code(s): F90.9 - Attention-deficit hyperactivity disorder, unspecified type Category: Medical Plan: Reasonably controlled. Continue Adderall (2) Hyperlipidemia: Code(s): E78.5 - Hyperlipidemia, unspecified Category: Medical Plan: Lipid panel ordered. Recommend diet low in saturated fats and highly processed foods. Work on weight loss efforts (3) Asthma: Code(s): J45.909 - Unspecified asthma, uncomplicated Category: Medical Plan: Controlled. Albuterol only as needed (4) Abnormal skin growth: Code(s): D49.2 - Neoplasm of unspecified behavior of bone, soft tissue, and skin Category: Medical Plan: Refer to dermatology Orders: Orders Lipid Panel Today E78.5 - Hyperlipidemia, unspecified, F90.9 - Attention-deficit hyperactivity disorder, unspecified type, J45.909 - Unspecified asthma, uncomplicated, K80.50 - Calculus of bile duct without cholangitis or cholecystitis without obstruction Complete Blood Count Auto Diff Today E78.5 - Hyperlipidemia, unspecified, F90.9 - Attention-deficit hyperactivity disorder, unspecified type, J45.909 - Unspecified asthma, uncomplicated, K80.50 - Calculus of bile duct without cholangitis or cholecystitis without obstruction Basic Metabolic Panel Today E78.5 - Hyperlipidemia, unspecified, F90.9 - Attention-deficit hyperactivity disorder, unspecified type, J45.909 - Unspecified asthma, uncomplicated, K80.50 - Calculus of bile duct without cholangitis or cholecystitis without obstruction Liver Panel Today E78.5 - Hyperlipidemia, unspecified, F90.9 - Attention-deficit hyperactivity disorder, unspecified type, J45.909 - Unspecified asthma, uncomplicated, K80.50 - Calculus of bile duct without cholangitis or cholecystitis without obstruction Referrals Dermatology Referral D49.2 - Neoplasm of unspecified behavior of bone, soft tissue, and skin Patient Instructions: Cholecystectomy- November 2023 Rotator cuff repair- May 2023
[2025-05-24 08:21] VITALS: BP 110/72; PULSE 75; O2SAT 96; BMI 31.7
== END 2025-05-24 08:27 | disposition home or self-care (01) ==
LOC: HO.HMCHD 08:00
PROVIDERS: PCP Physician Assistant; Visit Provider Physician Assistant
DX: F90.9 Attention-deficit hyperactivity disorder, unspecified type (principal); E78.5 Hyperlipidemia, unspecified; J45.909 Unspecified asthma, uncomplicated; D49.2 Neoplasm of unspecified behavior of bone, soft tissue, and skin

== ENCOUNTER → 2025-05-24 07:59 | Outpatient (BNVA) | payer BC, SELFPAY | PROVIDERS: PCP Internal Medicine; Visit Provider Physician Assistant | DX: Z76.89 Persons encountering health services in other specified circumstances (principal); F90.9 Attention-deficit hyperactivity disorder, unspecified type; E78.5 Hyperlipidemia, unspecified; J45.20 Mild intermittent asthma, uncomplicated; D49.2 Neoplasm of unspecified behavior of bone, soft tissue, and skin; Z13.30 Encounter for screening examination for mental health and behavioral disorders, unspecified | CPT/HCPCS: 96127 ==

== ENCOUNTER 2025-06-16 07:47 | Outpatient (REF) | payer BC, SELFPAY ==
--- NOTE | ~2025-06-16 | XR_ITS ---
EXAMINATION: XR HAND 3 OR MORE VIEWS RIGHT HISTORY: M79.641 - Pain in right hand COMPARISON: Comparison is made with the prior examination dated 05/21/2025. FINDINGS: Three views of the right hand are submitted. Osseous mineralization is normal. There is an avulsion fracture of the volar aspect of the base of the middle phalanx of the middle finger. The bones are otherwise intact. There is no dislocation. The joint spaces are preserved. There is soft tissue swelling over the PIP joint of the middle finger. XR/XR hand RT min 3V IMPRESSION: Avulsion fracture of the volar aspect of the base of the middle phalanx of the middle finger. Electronically signed by: Arturo Baird MD 06/16/2025 09:05 AM EDT
== END 2025-06-16 07:48 | disposition home or self-care (01) ==
LOC: HO.HOSX 07:47
DX: S62.612A Displaced fracture of proximal phalanx of right middle finger, initial encounter for closed fracture (principal); M25.631 Stiffness of right wrist, not elsewhere classified
CPT/HCPCS: 73130

== ENCOUNTER 2025-06-16 08:20 | Outpatient (AMB) | payer BC, SELFPAY ==
--- NOTE | 2025-06-16 08:37 | A.OFFVIS_ITS ---
Intake Visit Reasons: OV- f/u Right wrist sprain w/ xray Intake Note: Jayden is a 34 year old right hand dominant male who presents today for a follow up visit for her avulsion fracture of the right middle finger, DOI: 05/01/25. At his last visit he will be referred to occupational therapy to work on range of motion and strengthening of the right hand and wrist. Patient reports he has not received a call from occupational therapy. He states his pain in the right middle finger has improved. He notices an increase with overuse of right hand. Flexion and extension of right hand digits has improved. He has concern on why his right middle finger is still swollen. Allergies peanut (PEANUTS) Allergy (Severe, Verified 06/16/25 08:39) ANAPHYLAXIS Penicillins (PENICILLINS) Allergy (Unknown, Verified 06/16/25 08:39) HIVES Sulfa (Sulfonamide Antibiotics) Allergy (Verified 06/16/25 08:39) swelling cefaclor (From Ceclor) Adverse Reaction (Verified 06/16/25 08:39) GI problems naphon Allergy (Severe, Uncoded 06/16/25 08:39) eye medication HPI HPI OV- f/u Right wrist sprain w/ xray: Details: Jayden is a 34 year old right hand dominant male who presents today for a follow up visit for his avulsion fracture of the right middle finger, DOI: 05/01/25. At his last visit he will be referred to occupational therapy to work on range of motion and strengthening of the right hand and wrist. Patient reports he has not received a call from occupational therapy. He states his pain in the right middle finger has improved. He notices an increase with overuse of right hand. Flexion and extension of right hand digits has improved. He has concern on why his right middle finger is still swollen. 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 Neuro: Normal sensation of the tips of all digits of the right hand at this time Vascular: Cap refill brisk Pain: No tenderness to palpation about right middle finger, right ring finger, or right wrist Patient does report some very minor discomfort when making a closed fist with the right middle finger ROM: Patient is able to make a closed fist and extend all digits of the right hand fully with encouragement Skin: No lacerations or abrasions. General: No ecchymosis, erythema, or evidence of infection. Psych: Appears grossly normal Affect normal Attitude cooperative Assessment & Plan Assessment & Plan (1) Fracture of finger, middle phalanx, right, closed: Code(s): S62.629A - Displaced fracture of middle phalanx of unspecified finger, initial encounter for closed fracture Category: Medical (2) Stiffness of right wrist joint: Code(s): M25.631 - Stiffness of right wrist, not elsewhere classified Category: Medical Plan 1. Avulsion fracture of the right middle finger Date of injury 05/01/2025 Patient is educated about this injury Patient is educated about the typical recovery course At this time, patient is advised he should north tape the middle and ring fingers together to act as a moving splint allowing movement while the fracture continues to heal X-rays negative for any acute bony pathology of the right wrist Patient will be referred to occupational therapy to work on range of motion and eventually strengthening of the right hand and wrist 5 lb weight limit until follow-up Patient is amenable to this plan Follow-up in 4-6 weeks Orders: Orders XR hand RT min 3V 06/16/25 M79.641 - Pain in right hand OT Evaluation and Treatment 06/16/25 M25.631 - Stiffness of right wrist, not elsewhere classified, S62.629A - Displaced fracture of middle phalanx of unspecified finger, initial encounter for closed fracture Coding Level of Care Code Global (07086) Diagnoses Fracture of finger, middle phalanx, right, closed S62.629A Stiffness of right wrist joint M25.631
== END 2025-06-16 08:50 | disposition home or self-care (01) ==
LOC: HO.HOS 08:21
PROVIDERS: PCP Internal Medicine
DX: S62.629A Displaced fracture of middle phalanx of unspecified finger, initial encounter for closed fracture (principal); M25.631 Stiffness of right wrist, not elsewhere classified
CPT/HCPCS: 99213

== ENCOUNTER → 2025-06-16 08:22 | Outpatient (BNV) | payer BC, SELFPAY | PROVIDERS: Visit Provider Radiology Diagnostic Radiology | DX: S62.622A Displaced fracture of middle phalanx of right middle finger, initial encounter for closed fracture (principal) | CPT/HCPCS: 73130 ==

== ENCOUNTER 2025-09-28 16:05 | Outpatient (AMB) | payer BC, SELFPAY ==
--- NOTE | 2025-09-28 16:08 | A.OFFPC_ITS ---
Vital Signs 09/28/25 16:10 Height 5 ft 10 in Weight 102.965 kg BMI 32.6 BP 120/76 Blood Pressure Location Lt brachial Position Sitting Respiration 18 Pulse 81 Pulse Source Pulse Oximeter Temp 97.4 F Temp Source Temporal Artery Scan Pulse Oximetry (%) 98 Oxygen Delivery Method Room Air Intake Visit Reasons: right knee swollen, under knee cap Etcher Machine Required: No Accompanied by: Self / Same As Patient Allergies peanut (PEANUTS) Allergy (Severe, Verified 09/28/25 16:09) ANAPHYLAXIS Penicillins (PENICILLINS) Allergy (Unknown, Verified 09/28/25 16:09) HIVES Sulfa (Sulfonamide Antibiotics) Allergy (Verified 09/28/25 16:09) swelling cefaclor (From Ceclor) Adverse Reaction (Verified 09/28/25 16:09) GI problems naphon Allergy (Severe, Uncoded 06/16/25 08:39) eye medication Tobacco use date assessed: 09/28/25 Dental Screening Dental Screen Date: 09/28/25 Did you have a dental visit in the last 12 months?: No Did you have a dental problem in the last 6 months where you did not have access to dental care?: No Was dental information given to patient?: Patient has dentist HPI HPI Comments History of Present Illness Details 34-year-old male with history of ADHD, h yperlipidemia, asthma, obesity presenting to the office today to establish care and for evaluation. Asthma-stable without any acute exacerbation recently. Has not needed to use any inhalers ADHD-stable on Adderall 10 mg twice daily which he takes upon waking and at lunchtime. Managed by primary care Obesity-BMI 32.6. He does exercise and reports following a healthy diet. He does report he eats late at night around 22:00 and then go straight to bed. He does report disordered sleep. Reports he eats a lot of salads. Concerns: R knee swelling- intermittent x3 weeks. No injury known. When kneeling down, subsequently developed significant swelling. Will resolve and then flare up again. Swelling was below knee cap. No redness or warmth. Somewhat better today, but was double the size yesterday. No prior injury to the knees. No pain. R thigh- RLE feels slower/heavier than the L. Going up stairs had to assist leg up due to heaviness and weakness. Still happens on stairs and also sitting for prolonged periods. Was particularly symptomatic following his son's football game and [facility] Flat surface is fine. No hip or back pain. No injury. Feels crampy. Drinks about 90-100 oz water daily. Reports this does not feel like sciatica which he has had in the past. No pain in the leg. No back pain. ROS: see hpi EXAM: Constitutional - Awake and Alert, No apparent distress Eyes - PERRL Cardiovascular - S1S2, RRR, No edema Respiratory - Normal lung expansion, Normal respiratory effort, No respiratory distress, CTA bilaterally MSK-no midline or paraspinal tenderness to palpation. No tenderness over the SI joint. Negative straight leg raises bilaterally. 5/5 strength in the BLE. Sensation intact. Anterior thigh nontender to palpation. Right knee-nontender to palpation. There is swelling over the patellar tendon with mild effusion noted bilaterally. Full extension and flexion, no joint laxity noted Extremities - no calf tenderness bilaterally, no swelling Skin - Warm/Dry Neurological - Alert & oriented x3 Psychological - Appropriate affect [facility] Medical History (Updated 09/28/25 @ 16:34 by WALE Clmeents) Obesity Synovial cyst of lumbar spine Hyperlipidemia ADHD Asthma Surgical History History of laparoscopic cholecystectomy (11/21/23) Hx of rotator cuff surgery No pertinent past surgical history Social History Housing: House Alcohol intake: current Alcohol intake frequency: holidays/special occasions only Patient Tobacco Use Status: Current everyday Tobacco user Tobacco use type: Cigar e-Cigarette/Vaping Use: Never Used service: No Current occupational status: employed 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 How often do you have a drink containing alcohol?: 2-4 times a month 2. How many drinks containing alcohol do you have on a typical day when you are drinking?: 1 or 2 Total Score: 2 Physical exam (Primary Care) Vital Signs: Last Vital Signs Temp 97.4 F 09/28/25 16:10 Pulse 81 09/28/25 16:10 Resp 18 09/28/25 16:10 BP 120/76 09/28/25 16:10 Pulse Ox 98 09/28/25 16:10 Oxygen Delivery Method Room Air 09/28/25 16:10 BMI result Body Mass Index 32.6 Tobacco/Smoking Status: Tobacco use Status Tobacco use date assessed 09/28/25 09/28/25 16:15 Patient Tobacco Use Status Current everyday Tobacco 09/28/25 16:15 Tobacco use type Cigar 09/28/25 16:15 e-Cigarette/Vaping Use Never Used 09/28/25 16:15 Coding Level of Care Code New Pt Level 4 (78497) Complex EM visit Add On G2211 Diagnoses Leg heaviness R29.898 Swelling of right knee joint M25.461 Asthma J45.909 Hyperlipidemia E78.5 ADHD F90.9 Obesity E66.9 Assessment & Plan Assessment & Plan (1) Leg heaviness: Code(s): R29.898 - Other symptoms and signs involving the musculoskeletal system Category: Medical Plan: Suspect this is related to femoral nerve compression after sitting on bleachers and prolonged kneeling position while renovating his bathroom. Given sensation issues and heaviness, check electrolyte levels as well as vitamin B12. If normal, we will recommend rest, range of motion exercises of the hip and can consider referral to physical therapy if not improving. (2) Swelling of right knee joint: Code(s): M25.461 - Effusion, right knee Category: Medical Plan: Likely prepatellar bursitis. X-ray of the knee ordered to assess for any bony abnormality or effusion. Recommend ice and compression as well as ibuprofen as needed. Can consider referral to Orthopaedics pending results of x-ray. He is given exercises to perform at home (3) Asthma: Code(s): J45.909 - Unspecified asthma, uncomplicated Category: Medical Plan: Stable. Monitor for symptoms. Albuterol if needed (4) Hyperlipidemia: Code(s): E78.5 - Hyperlipidemia, unspecified Category: Medical Plan: Lipid panel ordered (5) ADHD: Code(s): F90.9 - Attention-deficit hyperactivity disorder, unspecified type Category: Medical Plan: Stable. Continue with Adderall as ordered (6) Obesity: Code(s): E66.9 - Obesity, unspecified Category: Medical Plan: Weight loss efforts encouraged. Discussed healthy eating habits and timing of meals. Recommend diet with increased protein, fruits, vegetables and limiting refined sugars, simple carbohydrates and highly processed foods. Recommend increase exercise for at least 150 minutes of moderate intensity weekly. Discussed that while salads do have healthy components, monitoring additives/ingredients as well as dressing should be evaluated as this can lead to high calorie food Plan Follow-up in the office for annual physical exam. Labs to be completed today as well as x-ray of the knee Orders: Orders Hemoglobin A1c 09/28/25 E66.9 - Obesity, unspecified XR knee RT 3V 09/28/25 M25.461 - Effusion, right knee Vitamin B12 09/28/25 R29.898 - Other symptoms and signs involving the musculoskeletal system TSH reflex Free T4 09/28/25 R29.898 - Other symptoms and signs involving the musculoskeletal system
[2025-09-28 16:10] VITALS: BP 120/76; PULSE 81; RESP 18; TEMP 36.3; O2SAT 98; BMI 32.6
== END 2025-09-28 16:39 | disposition home or self-care (01) ==
LOC: HO.HMCHD 16:05
PROVIDERS: Visit Provider Physician Assistant
DX: M25.461 Effusion, right knee (principal); J45.909 Unspecified asthma, uncomplicated; Z68.32 Body mass index [BMI] 32.0-32.9, adult; R29.898 Other symptoms and signs involving the musculoskeletal system; E66.9 Obesity, unspecified; E78.5 Hyperlipidemia, unspecified; F90.9 Attention-deficit hyperactivity disorder, unspecified type

== ENCOUNTER 2025-09-28 16:05 | Outpatient (REF) | payer BC, SELFPAY ==
[2025-09-28 16:57] LABS: MANUAL DIFF FLAG NO
[2025-09-28 18:48] LABS: Alanine Aminotransferase 50 U/L (0-40); Albumin Level 5.2 g/dL (3.5-5.0); Alkaline Phosphatase 60 U/L (39-117); Anion Gap 13 (12-20); Aspartate Amino Transferase 46 U/L (5-37); Blood Urea Nitrogen 25 mg/dL (9-16); Calcium 9.4 mg/dL (8.4-10.2); Carbon Dioxide 27 mmol/L (22-29); Chloride 107 mmol/L (96-108); Cholesterol 209 mg/dL (<200); Estimated Glomerular Filt Rate > 60; HDL Cholesterol 70 mg/dL (>40); Potassium 4.3 mmol/L (3.3-5.1); Sodium 143 mmol/L (135-145); Total Protein 8.2 g/dL (6.5-8.0); Triglycerides 101 mg/dL (<150)
[2025-09-28 19:05] LABS: Hematocrit 42.7 % (42.0-52.0); Hemoglobin 14.1 g/dl (14.0-18.0); Imm Gran Abs Auto 0.02 X10*3/uL (0.00-0.03); Imm Gran Pct Auto 0.3 % (0.0-0.4); Lymphocytes Absolute Auto 2.4 X10*3/uL (1.2-4.9); Mean Corpuscular HGB Conc 33.0 g/dl (31.0-36.0); Mean Corpuscular Hemoglobin 30.5 pg (27.0-33.0); Mean Corpuscular Volume 92.2 fL (80.0-98.0); NRBC Abs Auto 0.000 X10*3/uL (0.0-0.012); NRBC Pct Auto 0.0 /100WBC (0.0-0.2); Platelet Count 287 X10*3/uL (160-400); Red Blood Count 4.63 X10*6/uL (4.60-5.80); White Blood Count 6.4 X10*3/uL (4.8-10.8)
[2025-09-28 19:16] LABS: Vitamin B12 731 pg/mL (200-900)
== END 2025-09-28 16:06 | disposition home or self-care (01) ==
LOC: HO.LAB 16:05
PROVIDERS: PCP Physician Assistant; Visit Provider Physician Assistant
DX: K80.50 Calculus of bile duct without cholangitis or cholecystitis without obstruction (principal); F90.9 Attention-deficit hyperactivity disorder, unspecified type; E78.5 Hyperlipidemia, unspecified; J45.909 Unspecified asthma, uncomplicated; E66.9 Obesity, unspecified; R29.898 Other symptoms and signs involving the musculoskeletal system; M25.461 Effusion, right knee; Z68.32 Body mass index [BMI] 32.0-32.9, adult; Z13.1 Encounter for screening for diabetes mellitus
CPT/HCPCS: 36415; 80048; 80061; 80076; 82607; 83036; 84443; 85025

== ENCOUNTER 2025-10-18 09:26 | Outpatient (AMB) | payer BC, SELFPAY ==
--- NOTE | 2025-10-18 09:28 | A.OFFPC_ITS ---
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: No Accompanied by: Self / Same As Patient Allergies peanut (PEANUTS) Allergy (Severe, Verified 10/18/25 09:28) ANAPHYLAXIS Penicillins (PENICILLINS) Allergy (Unknown, Verified 10/18/25 09:28) HIVES Sulfa (Sulfonamide Antibiotics) Allergy (Verified 10/18/25 09:28) swelling cefaclor (From Ceclor) Adverse Reaction (Verified 10/18/25 09:28) GI problems naphon Allergy (Severe, Uncoded 06/16/25 08:39) eye medication Tobacco use date assessed: 09/28/25 Dental Screening Dental Screen Date: 09/28/25 HPI HPI Comments History of Present Illness Details 34-year-old male with history of ADHD, h yperlipidemia, asthma, obesity presenting to the office today to establish care and for evaluation. Lives with his son, 16, and daughter, 10. 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 Drinks socially. No history of cigarettes. Occasional cigar use. History of MJ edibles for sleep. Otherwise no history of drugs. Does drink a sugar free red bull Asthma-stable without any acute exacerbation recently. Has not needed to use any inhalers ADHD-stable on Adderall 10 mg twice daily which he takes upon waking and at lunchtime. Managed by primary care Obesity-BMI 32.6. He does exercise and reports following a healthy diet. He does report he eats late at night around 22:00 and then go straight to bed. He does report disordered sleep. Reports he eats a lot of salads. HLD- LDL 119. Concerns: R knee swelling- intermittent x 6 weeks or so. No injury known. When kneeling down while not wearing knee pads, subsequently develops significant swelling. Will resolve and then flare up again. Swelling is below knee cap. No redness or warmth. No pain, just swelling R thigh- RLE feels slower/heavier than the L. Going up stairs had to assist leg up due to heaviness and weakness. Worse on stairs and also sitting for prolonged periods. Was particularly symptomatic following his son's football game and while walking up the stairs to the bleachers. Flat surface is fine. No hip or back pain. No injury. Very minimal paresthesia, primarily cramping/pain, severe at times. Drinks about 90-100 oz water daily. Reports this does not feel like sciatica which he has had in the past. Health Maintenance: Colonoscopies to start at age 43 Eye exam last year- no corrective lenses Dentist twice yearly Reviewed past medical, surgical, family, social history ROS: General: No fevers, malaise, unintentional weight loss HEENT: No blurred vision, diplopia. No sore throat, nasal congestion, rhinorrhea, sinus pain, ear pain. No hearing loss Neck - no adenopathy Cardiovascular: No chest pain, palpitations, or leg edema Respiratory: No shortness of breath, wheezing, cough GI: No dysphagia, odynophagia, globus sensation. No abdominal pain, nausea, vomiting, diarrhea, constipation, melena, hematochezia : No dysuria, hematuria, increased urinary frequency, decreased urinary output. No testicular swelling or pain. No penile discharge MSK: No myalgia, back pain. See HPI Neuro: No headaches, weakness, paresthesias Psych: no depression/anxiery. No AH/VH. No SI/HI Skin: No rashes or lesions EXAM: Constitutional - Awake and Alert, No apparent distress Eyes - PERRLA, EOMI. Anicteric Ears - external ears normal, canals clear, TMs intact and pearly marie with good cone of light Nose- septum midline, nares clear, no sinus tenderness Mouth/throat- mucosa moist, tongue and uvula midline, no erythema/edema or tonsillar adenopathy. Neck-trachea midline, thyroid symmetric without palpable nodules, no adenopathy Cardiovascular - S1S2, RRR, No edema Respiratory - Normal lung expansion, Normal respiratory effort, No respiratory distress, CTA bilaterally Gastrointestinal - NT / ND; +BS; No rebound or guarding - No CVA tenderness Extremities - no calf tenderness bilaterally, no swelling Musculoskeletal - Normal inspection, normal ROM Skin - Warm/Dry, no concerning lesions Neurological - Alert & oriented x3, CN II-XII in tact, 5/5 strength BUE and BLE, 2+ patellar reflexes, sensation intact Psychological - Appropriate affect [facility] Medical History Obesity Synovial cyst of lumbar spine Hyperlipidemia ADHD Asthma Surgical History History of laparoscopic cholecystectomy (11/21/23) Hx of rotator cuff surgery No pertinent past surgical history Family History Mother Breast cancer in situ Father Diabetes Gout Maternal Grandfather Cancer Social History Housing: House Alcohol intake: current Alcohol intake frequency: holidays/special occasions only Patient Tobacco Use Status: Current everyday Tobacco user Tobacco use type: Cigar e-Cigarette/Vaping Use: Never Used service: No Current occupational status: employed 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 Physical exam (Primary Care) Vital Signs: Last Vital Signs Temp 97.8 F 10/18/25 09:31 Pulse 79 10/18/25 09:31 Resp 18 10/18/25 09:31 BP 114/82 10/18/25 09:31 Pulse Ox 98 10/18/25 09:31 Oxygen Delivery Method Room Air 10/18/25 09:31 BMI result Body Mass Index 32.5 Tobacco/Smoking Status: Tobacco use Status Tobacco use date assessed 09/28/25 10/18/25 09:34 Patient Tobacco Use Status Current everyday Tobacco 10/18/25 09:34 Tobacco use type Cigar 10/18/25 09:34 e-Cigarette/Vaping Use Never Used 10/18/25 09:34 Coding Level of Care Code Est Pt Prev Care 18-39y(45987) Diagnoses Routine medical exam Z00.00 Hyperlipidemia E78.5 ADHD F90.9 Swelling of right knee joint M25.461 Lower extremity weakness R29.898 Assessment & Plan Assessment & Plan (1) Routine medical exam: Code(s): Z00.00 - Encounter for general adult medical examination without abnormal findings Plan: 35-year-old male presenting for annual physical exam. (2) Hyperlipidemia: Code(s): E78.5 - Hyperlipidemia, unspecified Category: Medical Plan: LDL 119. Recommend diet low in saturated fats and highly processed foods. Continue with regular exercise and weight loss efforts (3) ADHD: Code(s): F90.9 - Attention-deficit hyperactivity disorder, unspecified type Category: Medical Plan: Stable. Continue Adderall 10 mg twice daily as needed (4) Swelling of right knee joint: Code(s): M25.461 - Effusion, right knee Category: Medical Plan: Advised to have x-ray performed as previously ordered. Plan to be discussed following visits. Advised to wear knee pads given this is a trigger (5) Lower extremity weakness: Code(s): R29.898 - Other symptoms and signs involving the musculoskeletal system Category: Medical Plan: Suspect this may be compression of the femoral nerve. Less likely meralgia paresthetica given significant pain rather than paresthesias. He is referred to physical therapy as well as physiatry. Plan Reviewed screening labs as previously ordered Colonoscopies to start at age 45 Continue following for annual skin exams and use sun protection Annual eye exams Dental exams twice yearly Wear seat belt in car Recommend regular exercise and healthy diet Advised against red bull use or other energy drinks Follow up in 1 year Orders: Orders PT Evaluation and Treatment Today G57.10 - Meralgia paresthetica, unspecified lower limb, R29.898 - Other symptoms and signs involving the musculoskeletal system Referrals Physiatry Referral G57.10 - Meralgia paresthetica, unspecified lower limb, R29.898 - Other symptoms and signs involving the musculoskeletal system
[2025-10-18 09:31] VITALS: BP 114/82; PULSE 79; RESP 18; TEMP 36.6; O2SAT 98; BMI 32.5
== END 2025-10-18 10:21 | disposition home or self-care (01) ==
PROVIDERS: PCP Physician Assistant; Visit Provider Physician Assistant
DX: Z00.00 Encounter for general adult medical examination without abnormal findings (principal); E78.5 Hyperlipidemia, unspecified; F90.9 Attention-deficit hyperactivity disorder, unspecified type; M25.461 Effusion, right knee; R29.898 Other symptoms and signs involving the musculoskeletal system